=== PATIENT | male | born 1995 | race Caucasian/White ===

== ENCOUNTER 2018-11-15 08:15 | Emergency (ER) | payer MEDICAID, SELFPAY ==
[2018-11-15] VITALS (27 sets, daily range): BP systolic 117–177; BP diastolic 67–99; PULSE 45–63; RESP 18; TEMP 36.6; O2SAT 95–100
--- NOTE | 2018-11-15 08:28 | DI.CT_ITS ---
SYMPTOMS/DIAGNOSIS: ONSET OF HEADACHE DURING SEX, CONCERN FOR VASCULAR ABNORMALITY CT BRAIN: A noncontrast cranial CT was performed. The ventricular system is normal in appearance. There is no evidence of an intracranial mass lesion. There is no evidence of a subdural or epidural hematoma. No focal areas of decreased attenuation are seen. CONCLUSION: Normal noncontrast cranial CT. CTA OF THE HEAD AND NECK: CT ANGIOGRAPHY OF THE NECK: The common carotid arteries are unremarkable without evidence of dissection, occlusion or significant stenosis. The external carotid arteries are unremarkable without evidence of occlusion or significant stenosis. The extracranial internal carotid arteries are unremarkable without evidence of dissection, occlusion or significant stenosis. The vertebral arteries are unremarkable. No evidence of dissection or occlusion is seen. No significant stenosis is present. There is a dominant right vertebral artery. The lung apices are clear. The soft tissues are unremarkable. The bones are intact. IMPRESSION: No acute abnormality. CTA OF THE BRAIN: The intracranial portions of the internal carotid arteries are unremarkable. No evidence of occlusion, aneurysm or significant stenosis is seen. The anterior carotid arteries are unremarkable without evidence of aneurysm, occlusion or significant stenosis. The middle cerebral arteries are unremarkable without evidence of aneurysm, occlusion or significant stenosis. The posterior cerebral arteries are unremarkable without evidence of stenosis, aneurysm or occlusion. The vertebral arteries and basilar artery are unremarkable. No evidence of aneurysm, occlusion or significant stenosis. IMPRESSION: Unremarkable CT angiography of the brain.
--- NOTE | 2018-11-15 08:35 | W.ED.GENAD ---
Discharge Plan Disposition Patient Disposition: HOME Condition: Improving Discharge Details Chief Complaint: Headache Clinical Impression: Headache Primary Care Provider: Venkata Rose ED Provider: Angelito Mcdonald Home Meds and New Rx's Prescriptions: No Action No Known Home Meds RF: 0 Discharge Instructions Instructions: General Headache (ED) Additional Instructions: Return immediately to the emergency department for any new or significant worsening of your symptoms. Otherwise you may use [id number] Excedrin Migraine, stay well-hydrated, and get plenty of rest. If you continue to get headaches it is highly recommended that you follow-up with primary care provider for reassessment and any further testing as needed Referrals: Venkata Rose MD [Primary Care Provider] - (As needed for reassessment) Discharge Data Discharge Date/Time-TO BE ENTERED AT DEPARTURE: 11/15/18 11:16 Medical Decision Making Patient presenting to the emergency for chief complaint of headache. Patient states that this started occurring during sexual activity yesterday. Patient denies this being orgasmic in nature but states that it started out mild and has worsened since yesterday afternoon. Patient states some nausea but denies any vomiting, denies any focal neurological deficits, weakness. Patient does have some photophobia. Patient denies any fever chills cold-like symptoms. Physical exam shows no nuchal rigidity, normal cranial nerve exam, normal neurological exam. Patient does appear uncomfortable but is laughing with friends who are present in the room along with staff members. I do feel this is reassuring but given headache associated with sexual activity I do feel that CT imaging and lab work is needed to rule out aneurysm or structural abnormality. Plan to clear plate patient with Noncon head CT then proceed to head and neck CTA. Pending results patient given IV fluids, Benadryl, Compazine. Review of noncontrast head CT shows no acute abnormality so I feel that is safe for patient to have CTA of head and neck to look for any vascular or structural abnormality. Patient reassessed and does state some improvement of headache after Compazine and Benadryl. Patient given ketorolac to continue to help relieve symptoms. Review of labs is unremarkable nondiagnostic, review of CTA head neck shows no acute findings noted. Patient reassessed and continues to state improvement of symptoms and that he is feeling a lot better. Patient encouraged to return for any new or worsening symptoms otherwise to follow-up with primary care provider for reassessment. Return precautions were discussed with patient. After discussion of diagnosis and plan of care patient has no further needs, questions, or concerns and states clear understanding to return to the emergency department for any worsening symptoms. HPI General Mode of arrival: ambulatory. Date/Time Provider Initiated Documentation: 11/15/18 08:18. Limitations to Documentation: no limitations. Information obtained by: patient and RN notes reviewed. History of Present Illness 23 year old M presents to the emergency department with the chief complaint of headache, described as severe, with intensity rated at 10. Quality is described as sharp, and is localized to the head. Patient neck. Patient started experiencing this day(s) (1) and it has been constant. No relieving factors improve symptom(s), Patient did receive the following treatments prior to arrival, none Related Data Home Medications Medication Instructions Recorded Confirmed Unknown [No Known Home Meds] 11/15/18 11/15/18 Allergies Allergy/AdvReac Type Severity Reaction Status Date / Time No Known Allergies Allergy Unverified 11/15/18 08:26 General Stated Complaint: Headache NERIS: 2 Review of Systems Constitutional Denies chills, Denies fever(s), Denies frequent falls, Reports headache(s) and Denies weakness Eyes Denies blurry vision and Reports photophobia ENT Denies dizziness, Reports headache(s), Denies nasal congestion and Denies sinus pain Cardiovascular Denies chest pain, Denies syncope and Denies dyspnea Respiratory Denies dyspnea Gastrointestinal Denies abdominal pain, Reports nausea and Denies vomiting Neurologic Denies confusion, Denies dizziness, Denies syncope, Denies frequent falls, Reports headache(s), Denies focal weakness, Denies seizure-like activity, Denies sensory deficit and Denies weakness Psychiatric Denies confusion [facility] Medical History Arm fracture, left Asthma Clavicle fracture Social History Smoking and Tabacco status: Current every day Exam Const General: cooperative and well groomed Nutritional Appearance: average body habitus Orientation: alert, awake and oriented x3 Limitations: mental status not altered HENMT Head: normal to inspection, normocephalic and atraumatic Ears: hearing grossly normal bilaterally and TM's normal bilaterally General nose exam: external nose normal and nares normal Face and sinus: normal facial exam and sinuses nontender Mouth: oral mucosae normal and moist mucous membranes Throat: posterior oropharynx normal, tonsils normal and uvula midline Eyes Visual Alvares: normal visual alvares by confrontation Alignment and Position: alignment normal Periorbital: periorbital findings normal Eyelids: eyelids normal Sclera: sclerae normal Cornea: corneas normal Pupils: PERRL EOM: EOM intact bilaterally Neck Neck: normal visual inspection, full ROM, no lymphadenopathy and no meningeal signs Resp Effort & Inspection: normal respiratory effort and able to speak in complete sentences Auscultation: clear to auscultation bilaterally Cardio Rate: regular rate Rhythm: regular rhythm Heart Sounds: S1 normal and S2 normal Neuro General: alert, awake, oriented x3, gait normal, tone normal, moves all extremities, CN's II-XI intact bilaterally and not confused Cranial Nerves: CN's II-XI intact bilaterally Cognition: normal cognition Speech: speech normal Gait: normal gait Motor: muscle tone normal throughout, strength 5/5 throughout, no pronator drift, no movement abnormalities noted and no fasciculations Sensory Exam: no sensory deficits noted Coordination: [id number] test normal, Romberg test normal, Does not sway with eyes open, rapid alternating movement UE normal and rapid alternating movement LE normal Course Vital Signs Temperature 36.6 C 11/15/18 08:21 Pulse 56 L 11/15/18 08:21 Respiratory Rate 18 11/15/18 08:21 Blood Pressure 147/99 H 11/15/18 08:21 Pulse Oximetry 100 11/15/18 08:21 Temperature 36.6 C 11/15/18 08:21 Temperature Source Temporal Artery Scan 11/15/18 08:21 Pulse 56 L 11/15/18 08:21 Respiratory Rate 18 11/15/18 08:21 Respiratory Effort Non-Labored 11/15/18 08:25 Blood Pressure 147/99 H 11/15/18 08:21 Blood Pressure Position Supine 11/15/18 08:21 Pulse Oximetry 100 11/15/18 08:21 Oxygen Delivery Method Room Air 11/15/18 08:21 Oxygen Flow Rate 0 11/15/18 08:21 Pain Level 10 11/15/18 08:27
[2018-11-15] MEDS: Normal Saline 1,000 ML 1000 ML IV (08:40)
--- NOTE | 2018-11-15 08:41 | ED.GENADUL_ITS ---
Discharge Plan Disposition Patient Disposition: HOME Condition: Improving Discharge Details Chief Complaint: Headache Clinical Impression: Headache Primary Care Provider: Venkata Rose ED Provider: Angelito Mcdonald Home Meds and New Rx's Prescriptions: No Action No Known Home Meds RF: 0 Discharge Instructions Instructions: General Headache (ED) Additional Instructions: Return immediately to the emergency department for any new or significant worsening of your symptoms. Otherwise you may use [id number] Excedrin Migraine, stay well-hydrated, and get plenty of rest. If you continue to get headaches it is highly recommended that you follow-up with primary care provider for reassessment and any further testing as needed Referrals: Venkata Rose MD [Primary Care Provider] - (As needed for reassessment) Discharge Data Discharge Date/Time-TO BE ENTERED AT DEPARTURE: 11/15/18 11:16 Medical Decision Making Patient presenting to the emergency for chief complaint of headache. Patient states that this started occurring during sexual activity yesterday. Patient denies this being orgasmic in nature but states that it started out mild and has worsened since yesterday afternoon. Patient states some nausea but denies any vomiting, denies any focal neurological deficits, weakness. Patient does have some photophobia. Patient denies any fever chills cold-like symptoms. Physical exam shows no nuchal rigidity, normal cranial nerve exam, normal neurological exam. Patient does appear uncomfortable but is laughing with friends who are present in the room along with staff members. I do feel this is reassuring but given headache associated with sexual activity I do feel that CT imaging and lab work is needed to rule out aneurysm or structural abnormality. Plan to clear plate patient with Noncon head CT then proceed to head and neck CTA. Pending results patient given IV fluids, Benadryl, Compazine. Review of noncontrast head CT shows no acute abnormality so I feel that is safe for patient to have CTA of head and neck to look for any vascular or structural abnormality. Patient reassessed and does state some improvement of headache after Compazine and Benadryl. Patient given ketorolac to continue to help relieve symptoms. Review of labs is unremarkable nondiagnostic, review of CTA head neck shows no acute findings noted. Patient reassessed and continues to state improvement of symptoms and that he is feeling a lot better. Patient encouraged to return for any new or worsening symptoms otherwise to follow-up with primary care provider for reassessment. Return precautions were discussed with patient. After discussion of diagnosis and plan of care patient has no further needs, questions, or concerns and states clear understanding to return to the emergency department for any worsening symptoms. HPI General Mode of arrival: ambulatory . Date/Time Provider Initiated Documentation: 11/15/18 08:18 . Limitations to Documentation: no limitations . Information obtained by: patient and RN notes reviewed . History of Present Illness 23 year old M presents to the emergency department with the chief complaint of headache, described as severe, with intensity rated at 10. Quality is described as sharp, and is localized to the head. Patient neck. Patient started experiencing this day(s) (1) and it has been constant. No relieving factors improve symptom(s), Patient did receive the following treatments prior to arrival, none Related Data Home Medications Medication Instructions Recorded Confirmed Unknown [No Known Home Meds] 11/15/18 11/15/18 Allergies Allergy/AdvReac Type Severity Reaction Status Date / Time No Known Allergies Allergy Unverified 11/15/18 08:26 General Stated Complaint: Headache NERIS: 2 Review of Systems Constitutional Denies chills, Denies fever(s), Denies frequent falls, Reports headache(s) and Denies weakness Eyes Denies blurry vision and Reports photophobia ENT Denies dizziness, Reports headache(s), Denies nasal congestion and Denies sinus pain Cardiovascular Denies chest pain, Denies syncope and Denies dyspnea Respiratory Denies dyspnea Gastrointestinal Denies abdominal pain, Reports nausea and Denies vomiting Neurologic Denies confusion, Denies dizziness, Denies syncope, Denies frequent falls, Reports headache(s), Denies focal weakness, Denies seizure-like activity, Denies sensory deficit and Denies weakness Psychiatric Denies confusion [facility] Medical History Arm fracture, left Asthma Clavicle fracture Social History Smoking and Tabacco status: Current every day Exam Const General: cooperative and well groomed Nutritional Appearance: average body habitus Orientation: alert, awake and oriented x3 Limitations: mental status not altered HENMT Head: normal to inspection, normocephalic and atraumatic Ears: hearing grossly normal bilaterally and TM's normal bilaterally General nose exam: external nose normal and nares normal Face and sinus: normal facial exam and sinuses nontender Mouth: oral mucosae normal and moist mucous membranes Throat: posterior oropharynx normal, tonsils normal and uvula midline Eyes Visual Alvares: normal visual alvares by confrontation Alignment and Position: alignment normal Periorbital: periorbital findings normal Eyelids: eyelids normal Sclera: sclerae normal Cornea: corneas normal Pupils: PERRL EOM: EOM intact bilaterally Neck Neck: normal visual inspection, full ROM, no lymphadenopathy and no meningeal signs Resp Effort & Inspection: normal respiratory effort and able to speak in complete sentences Auscultation: clear to auscultation bilaterally Cardio Rate: regular rate Rhythm: regular rhythm Heart Sounds: S1 normal and S2 normal Neuro General: alert, awake, oriented x3, gait normal, tone normal, moves all extremities, CN's II-XI intact bilaterally and not confused Cranial Nerves: CN's II-XI intact bilaterally Cognition: normal cognition Speech: speech normal Gait: normal gait Motor: muscle tone normal throughout, strength 5/5 throughout, no pronator drift, no movement abnormalities noted and no fasciculations Sensory Exam: no sensory deficits noted Coordination: [id number] test normal, Romberg test normal, Does not sway with eyes open, rapid alternating movement UE normal and rapid alternating movement LE normal Course Vital Signs Temperature 36.6 C 11/15/18 08:21 Pulse 56 L 11/15/18 08:21 Respiratory Rate 18 11/15/18 08:21 Blood Pressure 147/99 H 11/15/18 08:21 Pulse Oximetry 100 11/15/18 08:21 Temperature 36.6 C 11/15/18 08:21 Temperature Source Temporal Artery Scan 11/15/18 08:21 Pulse 56 L 11/15/18 08:21 Respiratory Rate 18 11/15/18 08:21 Respiratory Effort Non-Labored 11/15/18 08:25 Blood Pressure 147/99 H 11/15/18 08:21 Blood Pressure Position Supine 11/15/18 08:21 Pulse Oximetry 100 11/15/18 08:21 Oxygen Delivery Method Room Air 11/15/18 08:21 Oxygen Flow Rate 0 11/15/18 08:21 Pain Level 10 11/15/18 08:27
[2018-11-15 08:51] LABS: Abs Immature Grans 0.01 k/cumm (0.0-0.09); Absolute Basophil Count 0.02 k/cumm (0.0-0.2); Absolute Eosinophil Count 0.08 k/cumm (0.0-0.7); Absolute Lymphocyte Count 1.76 k/cumm (1.2-3.4); Absolute Monocyte Count 0.36 k/cumm (0.11-0.7); Absolute Neutrophil Count 3.97 k/cumm (1.2-6.7); Basophils % 0.3; Eosinophils % 1.3; HGB 16.1 g/dL (13.5-17.5); Immature Grans % 0.2; Lymphocytes % 28.4; Mean Corp. HGB Concentration 33.5 g/dL (32.0-36.0); Mean Corpuscular Hemoglobin 30.2 pg (27.0-33.0); Mean Corpuscular Volume 90.1 fL (80-95); Mean Platelet Volume 9.7 fL (8.0-11.0); Monocytes % 5.8; Platelet Count 280 x1000/uL (130-400); RBC 5.33 m/cumm (4.50-6.00); RBC Distribution Width 12.5 % (11.8-14.1)
[2018-11-15] MEDS: diphenhydrAMINE 50 MG/ML VIAL 25 MG IVP (08:51)
[2018-11-15] MEDS: Prochlorperazine 10 MG/2 ML VIAL IVP (08:52)
[2018-11-15 09:15] LABS: ALT 28 U/L (12-78); AST 23 U/L (15-37); Albumin 4.8 g/dL (3.4-5.0); Alkaline Phosphatase 43 U/L (46-116); Anion Gap 11.1 mmol/L (3-11); BUN 11 mg/dL (7-18); Bilirubin, Total 0.5 mg/dL (0.2-1.0); CO2 27.9 mmol/L (21.0-32.0); Calcium 9.9 mg/dL (8.5-10.1); Chloride 101 mmol/L (98-107); Glucose 124 mg/dL (70-100); Magnesium 1.8 mg/dL (1.8-2.4); Potassium 3.9 mmol/L (3.5-5.1); Sodium 140 mmol/L (136-145); TSH 0.71 uIU/mL (0.358-3.74); Total Protein 8.7 g/dL (6.4-8.2)
[2018-11-15 09:43] LABS: Bilirubin Negative (Negative); Blood Negative (Negative); Clarity Clear; Glucose Negative (Negative); Ketones Negative (Negative); Leukocyte Esterase Negative (Negative); Nitrite Negative (Negative); Specific Gravity <= 1.005 (1.005-1.025); Urobilinogen 0.2 EU/dL (Up TO 0.2)
[2018-11-15] MEDS: Ketorolac 15 MG/ML VIAL IVP (09:43)
--- NOTE | 2018-11-15 09:47 | DI.VRAD_ITS ---
EXAM: CT Head Without Contrast EXAM DATE/TIME: 11/15/2018 8:34 AM CLINICAL HISTORY: 23 years old, male; Signs and symptoms; Other: Headache TECHNIQUE: Axial computed tomography images of the head/brain without contrast. All CT scans at this facility use at least one of these dose optimization techniques: automated exposure control; mA and/or kV adjustment per patient size (includes targeted exams where dose is matched to clinical indication); or iterative reconstruction. Coronal and sagittal reformatted images were created and reviewed. COMPARISON: No relevant prior studies available. FINDINGS: Brain: Normal. No hemorrhage. No significant white matter disease. No edema. Ventricles: Normal. No ventriculomegaly. Bones/joints: Unremarkable. No acute fracture. Sinuses: Visualized sinuses are unremarkable. No acute sinusitis. Mastoid air cells: Visualized mastoid air cells are unremarkable. No mastoid effusion. Soft tissues: Unremarkable. IMPRESSION: No acute intracranial abnormality. Dictated and Authenticated by: Holly Li MD. Ordering:HETAL Eaton MD
[2018-11-15] MEDS: Omnipaque 350 MG/ML 100 ML BTL IJ (10:32)
[2018-11-15] MEDS: Normal Saline Flush 10 ML SYR IVP (10:33)
--- NOTE | 2018-11-15 10:37 | DI.VRAD_ITS ---
EXAM: CT Angiography Head With Contrast EXAM DATE/TIME: 11/15/2018 9:38 AM CLINICAL HISTORY: 23 years old, male; Signs and symptoms; Other: Headache; Additional info: Sexual headache, concern for vascular abnormality TECHNIQUE: Axial computed tomographic angiography images of the head with intravenous contrast using CT angiography protocol. All CT scans at this facility use at least one of these dose optimization techniques: automated exposure control; mA and/or kV adjustment per patient size (includes targeted exams where dose is matched to clinical indication); or iterative reconstruction. MIP reconstructed images were created and reviewed. CONTRAST: 85 ml of Omnipaque 350 administered intravenously. COMPARISON: CT Private^HEAD ROUTINE (Adult) 11/15/2018 9:27 AM FINDINGS: Right internal carotid artery: Unremarkable. Intracranial segment is patent with no significant stenosis. No aneurysm. Right anterior cerebral artery: Unremarkable. No occlusion or significant stenosis. No aneurysm. Right middle cerebral artery: Unremarkable. No occlusion or significant stenosis. No aneurysm. Right posterior cerebral artery: Unremarkable. No occlusion or significant stenosis. No aneurysm. Right vertebral artery: Unremarkable. No occlusion or significant stenosis. No aneurysm. Left internal carotid artery: Unremarkable. Intracranial segment is patent with no significant stenosis. No aneurysm. Left anterior cerebral artery: Unremarkable. No occlusion or significant stenosis. No aneurysm. Left middle cerebral artery: Unremarkable. No occlusion or significant stenosis. No aneurysm. Left posterior cerebral artery: Unremarkable. No occlusion or significant stenosis. No aneurysm. Left vertebral artery: Unremarkable. No occlusion or significant stenosis. No aneurysm. Basilar artery: Unremarkable. No occlusion or significant stenosis. No aneurysm. IMPRESSION: No acute findings. EXAM: CT Angiography Neck With Contrast EXAM DATE/TIME: 11/15/2018 9:38 AM CLINICAL HISTORY: 23 years old, male; Signs and symptoms; Other: Headache; Additional info: Sexual headache, concern for vascular abnormality TECHNIQUE: Axial computed tomographic angiography images of the neck with intravenous contrast using CT angiography protocol. All CT scans at this facility use at least one of these dose optimization techniques: automated exposure control; mA and/or kV adjustment per patient size (includes targeted exams where dose is matched to clinical indication); or iterative reconstruction. MIP reconstructed images were created and reviewed. CONTRAST: 85 ml of Omnipaque 350 administered intravenously. COMPARISON: CT Private^HEAD ROUTINE (Adult) 11/15/2018 9:27 AM FINDINGS: VASCULATURE: Right common carotid artery: Normal. No significant stenosis. No dissection or occlusion. Right internal carotid artery: Normal. Extracranial segment is patent with no significant stenosis. No dissection or occlusion. Right external carotid artery: Normal. No occlusion or significant stenosis. Right vertebral artery: Normal. No significant stenosis. No dissection or occlusion. Left common carotid artery: Normal. No significant stenosis. No dissection or occlusion. Left internal carotid artery: Normal. Extracranial segment is patent with no significant stenosis. No dissection or occlusion. Left external carotid artery: Normal. No occlusion or significant stenosis. Left vertebral artery: Normal. No significant stenosis. No dissection or occlusion. NECK: Bones/joints: No acute fracture. Soft tissues: Normal. No significant soft tissue swelling. IMPRESSION: No acute findings. COMMENT: Reference per NASCET criteria for degree of stenosis: Mild: <50% stenosis. Moderate: 50-69% stenosis. Severe: 70-94% stenosis. Near occlusion: 95-99% stenosis. Dictated and Authenticated by: Holly Li MD. Ordering:HETAL Eaton MD
== END 2018-11-15 11:16 | disposition home or self-care (01) ==
PROVIDERS: Emergency Provider Nurse Practitioner Family; PCP Pediatrics
DX: R51 Headache (principal); R11.0 Nausea
CPT/HCPCS: 36415; 70496; 70498; 80053; 96361; 96374; 96375; 99284; 99285; 70450; 81003; 83735; 84443; 85025; J0780; J1200; J1885; J2930; J3490

== ENCOUNTER 2018-11-15 22:05 | Emergency (ER) | payer MEDICAID, SELFPAY ==
[2018-11-15 22:17] VITALS: BP 157/95; PULSE 72; RESP 18; O2SAT 100
[2018-11-15] MEDS: methylPREDNISolone SUCC 125 MG VIAL IVP (22:34)
[2018-11-15] MEDS: Ketorolac 30 MG/ML VIAL 15 MG IVP (22:35)
[2018-11-15] MEDS: Normal Saline 1,000 ML 1000 ML IV (22:37)
[2018-11-15] MEDS: Prochlorperazine 10 MG/2 ML VIAL IVP (22:37)
[2018-11-15] MEDS: Acetaminophen 500 MG TAB 1000 MG PO (22:44)
[2018-11-15] MEDS: diphenhydrAMINE 25 MG CAP PO (22:45)
--- NOTE | 2018-11-15 22:46 | W.ED.GENAD ---
Discharge Plan Disposition Patient Disposition: HOME Condition: Good Discharge Details Chief Complaint: Headache Clinical Impression: Headache, migraine Reason For Visit: head ache Primary Care Provider: Venkata Rose ED Provider: Evens Nina Home Meds and New Rx's Prescriptions: No Action No Known Home Meds RF: 0 Discharge Instructions Instructions: Migraine Headache (ED) Additional Instructions: Please stay well-hydrated, avoid deli meats or preserved meats. Please drink 10-12 cups of water per day. If you do have a recurrence of your headache please take 1000 mg of Tylenol, 25 mg of Benadryl, and 800 mg of ibuprofen. If your headache persists with this please return immediately for reassessment. We will set up for a referral for you for a new primary care provider. If you notice any worsening of your symptoms, or any new symptoms such as vomiting, diarrhea, fever, chills, shortness of breath, chest pain, numbness, weakness, or fainting , please return immediately to the emergency department for reevaluation. Please follow up with your primary care provider as soon as possible for reassessment and reevaluation. As always, it was a pleasure participating in your medical care today. Medical Decision Making This is a very pleasant 23-year-old male who presents for evaluation of headache. He had a headache earlier today that was postcoital. It was gradual in onset, he had no associated neck stiffness, fever, or chills. CT angios and Noncon CT scan were performed of the head and were both negative. Patient's symptoms completely resolved, and he was discharged home. Per the records it does not appear that he was given steroids on his previous visit. He presents now for return of his headache for the last 30 minutes. It is similar in nature to his previous headache. Patient demonstrates no nuchal rigidity, and a negative Kernig's and Brudzinski's. No clinical evidence of meningitis, or ruptured intracranial aneurysm. He has a normal neurologic exam. He has a strong family history of migraines. No clinical symptoms suggestive of a cluster headache. We will give the migraine cocktail except add steroids. We will rehydrate with fluids and reassess. I did discuss a lumbar puncture with the patient and he would like to hold off on any puncture at this time. I did discuss the risks and benefits of this and the patient understands. Patient will be given Benadryl, Solu-Medrol, Toradol, and Compazine, and IV fluids. 11:24 PM The patient has complete resolution of his headache. He is feeling much better at this time. Signs and symptoms remain clinically inconsistent with meningitis, intracranial aneurysm, or bleed. No signs of infection, vital signs are stable. I feel the symptoms are most likely secondary to a migraine, and less likely cluster headache. With steroids I hope that this will be the final resolution for his headache. I did discuss red flags for which to return the patient understands. I have extensively reviewed the treatment plan and discharge instructions with the patient and their family. I have addressed all patient concerns at this time. The patient and family was made aware of what symptoms to monitor for that would warrant a return to the emergency department. Discussed the plan with the patient and family, they demonstrate verbal understanding and agreement with our assessment and plan at this time. HPI General Date/Time Provider Initiated Documentation: 11/15/18 22:09. HPI Narrative: This is a pleasant 23-year-old male with no significant past medical history who presents today for evaluation of headache. He was here earlier today for evaluation of headache. When it occurred before it occurred after colitis. It was gradual in onset, it was not the worst headache of his life. However it gradually worsened. He came to the ER for further evaluation. He had a very thorough and complete workup by Milton Mcdonald within negative CT angios head, negative CT Noncon head, and otherwise benign workup. Patient had complete resolution of his symptoms after he was given some NSAIDs, and Compazine. He was eventually discharged home. Unfortunately this evening while the patient was watching [employer] his headache came back roughly 30 minutes ago. It again came on gradually but now he describes it as very severe. It comes from the back of his head all the way to the front. He denies any pain or ice pick like sensation behind his eyes. It is worsened with bright lights, loud noise. He denies any neck stiffness, fever, chills. The patient denies any headache red flags of worst headache of life, thunderclap headache, neck pain, fever, chills, concerning family history of polycystic kidney disease, Marfan syndrome, Jhony-Danlos syndrome, abdominal aortic aneurysm, aortic dissection, or intracranial aneurysm. Patient does state that his mother has a history of migraines similar to this. Patient denies any cocaine use or any other modifying factors. He denies any IV or illicit drug use. Related Data Home Medications Medication Instructions Recorded Confirmed Unknown [No Known Home Meds] 11/15/18 11/15/18 Allergies Allergy/AdvReac Type Severity Reaction Status Date / Time No Known Allergies Allergy Unverified 11/15/18 08:26 General Stated Complaint: Headache NERIS: 2 Review of Systems Review of Systems All systems reviewed & are unremarkable except as noted in HPI and below [facility] Social History Smoking and Tabacco status: Current every day Exam Narrative Exam Narrative: 1.Const: Well-nourished, Well-developed, appearing stated age 2.Eyes: PERRL, no conjunctival injection, and symmetrical lids. 3.ENT: Atraumatic external nose and ears. Moist MM. Neck: Symmetric, trachea midline, No thyromegaly. Patient demonstrates good movement of cervical neck. There is no nuchal rigidity, no nuchal tenderness. Patient is able to flex the neck without any difficulty or significant pain. Negative Kernig's and Brudzinski sign. 4.CVS: +S1/S2, No murmurs or gallops. Peripheral pulses 2+ and equal in all extremities. Brisk capillary refill in all extremities. 5.RESP: Unlabored respiratory effort. Clear to auscultation bilaterally. No wheezes rales or rhonchi 6.GI: Soft, Nontender/Nondistended, No hepatosplenomegaly. No guarding or rebound. 7.MSK: Normocephalic/Atraumatic, Extremities w/o deformity or ttp No cyanosis or clubbing, Normal movement of all extremities 8.Skin: Warm, Dry. No rashes or lesions. 9.Neuro: counter tender II-XII grossly intact. Sensation grossly intact, no focal neurologic deficits. All 6 cardinal planes of vision are fully intact. No evidence of rotatory or vertical nystagmus. The patient demonstrated a normal eujtmq-wojr-mseats, good dexterity. There was no evidence of dysdiadochokinesia. Patient was able to ambulate without difficulty. There was no wide-based gait. Romberg, and tnft-hm-[id number] are both normal on testing. Sensation was intact bilaterally as well as muscle strength bilaterally for all extremities. Patient was able to verbalize butter cup with no slurring, or miss pronunciation. 10.Psych: (AAO) x3. Appropriate mood and affect Course Vital Signs Pulse 72 11/15/18 22:17 Respiratory Rate 18 11/15/18 22:17 Blood Pressure 157/95 H 11/15/18 22:17 Pulse Oximetry 100 11/15/18 22:17 Temperature Source Tympanic 11/15/18 22:17 Pulse 72 11/15/18 22:17 Respiratory Rate 18 11/15/18 22:17 Blood Pressure 157/95 H 11/15/18 22:17 Blood Pressure Position Sitting 11/15/18 22:17 Pulse Oximetry 100 11/15/18 22:17 Oxygen Delivery Method Room Air 11/15/18 22:17 Oxygen Flow Rate 0 11/15/18 22:17 Pain Level 10 11/15/18 22:44
--- NOTE | 2018-11-15 22:50 | ED.GENADUL_ITS ---
Discharge Plan Disposition Patient Disposition: HOME Condition: Good Discharge Details Chief Complaint: Headache Clinical Impression: Headache, migraine Reason For Visit: head ache Primary Care Provider: Venkata Rose ED Provider: Evens Nina Home Meds and New Rx's Prescriptions: No Action No Known Home Meds RF: 0 Discharge Instructions Instructions: Migraine Headache (ED) Additional Instructions: Please stay well-hydrated, avoid deli meats or preserved meats. Please drink 10-12 cups of water per day. If you do have a recurrence of your headache please take 1000 mg of Tylenol, 25 mg of Benadryl, and 800 mg of ibuprofen. If your headache persists with this please return immediately for reassessment. We will set up for a referral for you for a new primary care provider. If you notice any worsening of your symptoms, or any new symptoms such as vomiting, diarrhea, fever, chills, shortness of breath, chest pain, numbness, weakness, or fainting , please return immediately to the emergency department for reevaluation. Please follow up with your primary care provider as soon as possible for reassessment and reevaluation. As always, it was a pleasure participating in your medical care today. Medical Decision Making This is a very pleasant 23-year-old male who presents for evaluation of headache. He had a headache earlier today that was postcoital. It was gradual in onset, he had no associated neck stiffness, fever, or chills. CT angios and Noncon CT scan were performed of the head and were both negative. Patient's symptoms completely resolved, and he was discharged home. Per the records it does not appear that he was given steroids on his previous visit. He presents now for return of his headache for the last 30 minutes. It is similar in nature to his previous headache. Patient demonstrates no nuchal rigidity, and a negative Kernig's and Brudzinski's. No clinical evidence of meningitis, or ruptured intracranial aneurysm. He has a normal neurologic exam. He has a strong family history of migraines. No clinical symptoms suggestive of a cluster headache. We will give the migraine cocktail except add steroids. We will rehydrate with fluids and reassess. I did discuss a lumbar puncture with the patient and he would like to hold off on any puncture at this time. I did discuss the risks and benefits of this and the patient understands. Patient will be given Benadryl, Solu-Medrol, Toradol, and Compazine, and IV fluids. 11:24 PM The patient has complete resolution of his headache. He is feeling much better at this time. Signs and symptoms remain clinically inconsistent with meningitis, intracranial aneurysm, or bleed. No signs of infection, vital signs are stable. I feel the symptoms are most likely secondary to a migraine, and less likely cluster headache. With steroids I hope that this will be the final resolution for his headache. I did discuss red flags for which to return the patient understands. I have extensively reviewed the treatment plan and discharge instructions with the patient and their family. I have addressed all patient concerns at this time. The patient and family was made aware of what symptoms to monitor for that would warrant a return to the emergency department. Discussed the plan with the patient and family, they demonstrate verbal understanding and agreement with our assessment and plan at this time. HPI General Date/Time Provider Initiated Documentation: 11/15/18 22:09 . HPI Narrative: This is a pleasant 23-year-old male with no significant past medical history who presents today for evaluation of headache. He was here earlier today for evaluation of headache. When it occurred before it occurred after colitis. It was gradual in onset, it was not the worst headache of his life. However it gradually worsened. He came to the ER for further evaluation. He had a very thorough and complete workup by Milton Mcdonald within negative CT angios head, negative CT Noncon head, and otherwise benign workup. Patient had complete resolution of his symptoms after he was given some NSAIDs, and Compazine. He was eventually discharged home. Unfortunately this evening while the patient was watching [employer] his headache came back roughly 30 minutes ago. It again came on gradually but now he describes it as very severe. It comes from the back of his head all the way to the front. He denies any pain or ice pick like sensation behind his eyes. It is worsened with bright lights, loud noise. He denies any neck stiffness, fever, chills. The patient denies any headache red flags of worst headache of life, thunderclap headache, neck pain, fever, chills, concerning family history of polycystic kidney disease, Marfan syndrome, Jhony-Danlos syndrome, abdominal aortic aneurysm, aortic dissection, or intracranial aneurysm. Patient does state that his mother has a history of migraines similar to this. Patient denies any cocaine use or any other modifying factors. He denies any IV or illicit drug use. Related Data Home Medications Medication Instructions Recorded Confirmed Unknown [No Known Home Meds] 11/15/18 11/15/18 Allergies Allergy/AdvReac Type Severity Reaction Status Date / Time No Known Allergies Allergy Unverified 11/15/18 08:26 General Stated Complaint: Headache NERIS: 2 Review of Systems Review of Systems All systems reviewed & are unremarkable except as noted in HPI and below [facility] Social History Smoking and Tabacco status: Current every day Exam Narrative Exam Narrative: 1.Const: Well-nourished, Well-developed, appearing stated age 2.Eyes: PERRL, no conjunctival injection, and symmetrical lids. 3.ENT: Atraumatic external nose and ears. Moist MM. Neck: Symmetric, trachea midline, No thyromegaly. Patient demonstrates good movement of cervical neck. There is no nuchal rigidity, no nuchal tenderness. Patient is able to flex the neck without any difficulty or significant pain. Negative Kernig's and Brudzinski sign. 4.CVS: +S1/S2, No murmurs or gallops. Peripheral pulses 2+ and equal in all extremities. Brisk capillary refill in all extremities. 5.RESP: Unlabored respiratory effort. Clear to auscultation bilaterally. No wheezes rales or rhonchi 6.GI: Soft, Nontender/Nondistended, No hepatosplenomegaly. No guarding or rebound. 7.MSK: Normocephalic/Atraumatic, Extremities w/o deformity or ttp No cyanosis or clubbing, Normal movement of all extremities 8.Skin: Warm, Dry. No rashes or lesions. 9.Neuro: seed analyst II-XII grossly intact. Sensation grossly intact, no focal neurologic deficits. All 6 cardinal planes of vision are fully intact. No evidence of rotatory or vertical nystagmus. The patient demonstrated a normal iyiwtw-imil-naqidp, good dexterity. There was no evidence of dysdiadochokinesia. Patient was able to ambulate without difficulty. There was no wide-based gait. Romberg, and spmv-cl-vkko are both normal on testing. Sensation was intact bilaterally as well as muscle strength bilaterally for all extremities. Patient was able to verbalize butter cup with no slurring, or miss pronunciation. 10.Psych: (AAO) x3. Appropriate mood and affect Course Vital Signs Pulse 72 11/15/18 22:17 Respiratory Rate 18 11/15/18 22:17 Blood Pressure 157/95 H 11/15/18 22:17 Pulse Oximetry 100 11/15/18 22:17 Temperature Source Tympanic 11/15/18 22:17 Pulse 72 11/15/18 22:17 Respiratory Rate 18 11/15/18 22:17 Blood Pressure 157/95 H 11/15/18 22:17 Blood Pressure Position Sitting 11/15/18 22:17 Pulse Oximetry 100 11/15/18 22:17 Oxygen Delivery Method Room Air 11/15/18 22:17 Oxygen Flow Rate 0 11/15/18 22:17 Pain Level 10 11/15/18 22:44
--- NOTE | 2018-11-16 09:00 | PDOC.ERCMPRO ---
Care Management Progress Note 11/16-Dr. Nina requested assistance with a PCP (used to see Dr. Damon Weaver asset protection manager) f/u in two weeks for reoccurring headaches. Referral faxed to [facility] this am.
--- NOTE | 2018-11-16 09:02 | CMPROGNOTE_ITS ---
Care Management Progress Note 11/16-Dr. Nina requested assistance with a PCP (used to see Dr. Damon Weaver refrigeration brazer/solderer) f/u in two weeks for reoccurring headaches. Referral faxed to [facility] this am.
== END 2018-11-15 23:32 | disposition home or self-care (01) ==
LOC: ER 23:34
PROVIDERS: Emergency Provider Student in an Organized Health Care Education/Training Program; PCP Pediatrics
DX: G43.909 Migraine, unspecified, not intractable, without status migrainosus (principal)
CPT/HCPCS: 96361; 96374; 96375; 99284; J0780; J1885; J2930

== ENCOUNTER 2019-12-13 20:00 | Emergency (ER) | payer MEDICAID, SELFPAY ==
[2019-12-13 20:06] VITALS: BP 129/77; PULSE 89; RESP 18; TEMP 36.6
--- NOTE | 2019-12-13 20:43 | ED.GENADUL_ITS ---
Discharge Plan Disposition Patient Disposition: HOME Condition: Stable Discharge Details Chief Complaint: PsychEval Clinical Impression: Depression, Homelessness, Heroin use Primary Care Provider: Venkata Rose ED Provider: Shannan Covington Home Meds and New Rx's Prescriptions: No Action No Known Home Meds RF: 0 Discharge Instructions Instructions: Depression (ED) Additional Instructions: Call [facility] tomorrow morning to see if a bed is available for rehabilitation stay. Follow your safety plan as discussed with behavioral health. You can follow-up with [facility] for further evaluation of your depression. Return to the emergency department if you develop any worsening or new concerning symptoms. Discharge Data Discharge Physician: Shannan Covington Medical Decision Making 2029 -- 24-year-old male with a history of heroin use who is currently homeless for the past week presents with thoughts of suicide. He currently does not have a plan. No previous history of suicide attempt. It appears at [facility] sent him here for evaluation when he called there to go for rehab today. He is hemodynamically stable. No acute findings on exam. He is alert and oriented. Do not see an indication for screening labs. Will call mental health for further evaluation. [id number] --mental health evaluated patient at bedside. Patient denies any suicidal ideation at this time and states he did not have any plan earlier today. He states he feels down due to his homelessness and drug use and would like to be placed at [facility]. Mental health discussed with [facility] and patient can call there tomorrow morning to see if bed available. While patient was in the ED, he was in the bathroom for approximately 10 to 15 minutes and there was concern that patient may have smoked heroin as there was a smell of butane in the bathroom. Patient adamantly denied this and states you people accuse me of smoking dope and I wasn't, I was only taking a shit!. Patient appears awake and alert. Patient and his girlfriend discussed with patient's father and patient will be staying at his father's house tonight. Hem[facility] with mental health discussed with patient's father and a safety plan was created. Patient later admitted to Hemal[facility] that he only stated he was suicidal because he wanted somewhere to stay tonight. Patient was advised to call [facility] tomorrow morning. He was advised to follow-up with [facility]. He was advised to return here with any concerns. Medical Records Medical records reviewed: Yes I reviewed the patient's medical records. HPI General Mode of arrival: ambulatory . Date/Time Provider Initiated Documentation: 12/13/19 20:11 . Limitations to Documentation: no limitations . Information obtained by: patient . HPI Narrative: Patient is a 24-year-old male who presents with thoughts of suicide today due to his continued drug use and homelessness. Patient states he had been living with his girlfriends parents until 1 week ago but cannot return there. He has a mother in [place] but states he cannot live there. He states [facility] and was clean for 1 month but then started using again. Patient states he last smoked heroin today. He denies any acute medical complaints. He states he called [facility] to go back to rehab and they advised him to come to the emergency department. Patient does not have a plan. He denies any homicidal ideation. He admits to previous thoughts of suicide with a plan to hang himself a few years ago but has never had a suicide attempt. Related Data Home Medications Medication Instructions Recorded Confirmed Unknown [No Known Home Meds] 11/15/18 11/15/18 Allergies Allergy/AdvReac Type Severity Reaction Status Date / Time No Known Allergies Allergy Unverified 11/15/18 08:26 General Stated Complaint: PsychEval NERIS: 2 Review of Systems All systems reviewed & are unremarkable except as noted in HPI and below Constitutional Constitutional: Reports as per HPI, Denies chills and Denies fever(s) Eyes Eyes: Denies blurry vision ENT Ears, Nose, Mouth, and Throat: Denies dizziness, Denies sore throat and Denies throat swelling Cardiovascular Cardiovascular: Denies chest pain and Denies dyspnea Respiratory Respiratory: Denies cough and Denies dyspnea Gastrointestinal Gastrointestinal: Denies abdominal pain, Denies diarrhea and Denies vomiting Genitourinary Genitourinary: Denies hematuria and Denies dysuria Musculoskeletal Musculoskeletal: Denies back pain and Denies numbness Integumentary/Breasts Skin/Breast: Denies lesions and Denies rash Neurologic Neurologic: Denies dizziness, Denies focal weakness and Denies numbness Psychiatric Psychiatric: Reports suicidal ideation Allergic/Immunologic Allergic/Immunologic: Denies throat swelling [facility] Social History Smoking/Tobacco Use Status: Current every day Tobacco Type: cigarettes Alcohol Intake: never Drug use: Daily Substance use type: marijuana, crack/cocaine, heroin and opiates Do you feel safe in your relationship?: Yes Exam Const General: cooperative, healthy appearing, no acute distress and disheveled Orientation: alert, awake and oriented x3 HENMT Head: normal to inspection Face and sinus: normal facial exam Eyes General: appearance normal, both eyes and all related structures Pupils: PERRL EOM: EOM intact bilaterally Neck Neck: normal visual inspection and No submandibular swelling Lymphatic: no lymphadenopathy noted Chest Chest: normal inspection of the chest and no tenderness Resp Effort & Inspection: normal respiratory effort and able to speak in complete sentences Auscultation: clear to auscultation bilaterally Cardio Rate: regular rate Rhythm: regular rhythm GI Inspection: normal to inspection Palpation: soft, not firm, not rigid and nontender Auscultation: normal bowel sounds Skin General skin exam: no rashes or lesions noted Neuro General: alert, awake and oriented x3 Cognition: normal cognition Speech: speech normal Motor: muscle tone normal throughout Sensory Exam: no sensory deficits noted Extrem General: normal to inspection, full ROM, normal capillary refill, no calf tend erness bilaterally and no edema Psych Appearance: grossly normal Mental Status: mental status grossly normal Speech and Movement: speech and movement normal Affect: normal affect Course Vital Signs Vital signs: Vital Signs Temperature 97.9 F 12/13/19 20:06 Pulse 89 12/13/19 20:06 Respiratory Rate 18 12/13/19 20:06 Blood Pressure 129/77 12/13/19 20:06 Temperature 97.9 F 12/13/19 20:06 Temperature Source Oral 12/13/19 20:06 Pulse 89 12/13/19 20:06 Respiratory Rate 18 12/13/19 20:06 Respiratory Effort 12/13/19 20:10 Blood Pressure 129/77 12/13/19 20:06 Oxygen Delivery Method Room Air 12/13/19 20:06 Oxygen Flow Rate 0 12/13/19 20:06 Pain Level 0 12/13/19 20:06
--- NOTE | 2019-12-13 22:50 | NUR.NOTE ---
Nursing Note: Pt in bathroom fro 10+ minutes. When asked pt stated i had to take a shit. Upon exiting [facility] butane odor was present. Pt denies use. Pts belongings had been removed. however girlfriend did have her purse. Pt consented to be searched. No contraband found. Pt became irritated with staffs suspicion and requested to leave. MD and mental stacie advised.
--- NOTE | 2019-12-13 23:08 | PDOC.MHPN2 ---
Date of service: 12/13/19 Time of Service: 23:21 Mental Health Progress Note Progress Note Progress Note: Presenting Issue: Pt presented to ED per recommendation of [facility]. Pt advised he was gonna end it earlier today, and wanted to get into [facility]. Pt advised he had to say some crazy shit to get a ride from his girlfriend's parents, further advising that he stated he wanted to kill himself because he was afraid he wasn't going to have a place to go tonight, as they recently kicked him out because he smokes heroin. Precipitating Factors Pt advised that he was recently kicked out of his girlfriend's parents, and has been homeless for a week. Pt advised that he wants to be inpatient at [facility]. Pt has no SI or HI currently, and advised that he just said that to get a ride and get into a program for heroin abuse. When asked if he feels hopeless, pt advised, nabil sorta. Disposition * Behavior: While I was asking him questions, pt rolled his eyes and laughed at many of my questions. Pt was barely cooperative while safety planning, and advised, I didn't really want to hurt myself, I just needed a ride. *Eye Contact: Very little eye contact *Mood: Pt was annoyed and agitated *Affect: Pt was inappropriate and laughed at questions pertaining to safety planning *Appetite: pt advised he hasn't eaten all day ad just wanted to go to his dad's house to eat and pass the fuck out *Sleep(troubel falling/staying asleep): no issues Plan(please elaborate and include that physician is consulted with plan and/or placement): Pt will go to his father's house in [place] with his girlfriend, Kathy. Pt advised he will call [facility] tomorrow, and let [facility] know if they need anything from our agency. Clinician's Name , Title, and Signature [employer] [place] [employer] Make sure that you are photocopying and submitting this to [facility] records Dept. to be scanned into chart.
== END 2019-12-13 23:08 | disposition home or self-care (01) ==
PROVIDERS: Emergency Provider Physician Assistant; PCP Pediatrics
DX: F11.10 Opioid abuse, uncomplicated (principal); F32.9 Major depressive disorder, single episode, unspecified; Z59.0 Homelessness; R45.851 Suicidal ideations
CPT/HCPCS: 99285; 99283

== ENCOUNTER 2020-04-14 09:31 | Emergency (ER) | payer MEDICAID, SELFPAY ==
[2020-04-14 09:34] VITALS: BP 137/96; PULSE 82; RESP 16; TEMP 36.8; O2SAT 98
--- NOTE | 2020-04-14 09:39 | ED.GENADUL_ITS ---
Discharge Plan Disposition Patient Disposition: HOME Condition: Stable Discharge Details Chief Complaint: DentalOral Clinical Impression: Dental infection, Dental caries Primary Care Provider: None,None ED Provider: Shannan Covington Home Meds and New Rx's Prescriptions: New penicillin V potassium 500 mg tablet 500 mg PO QID 7 Days Qty: 28 RF: 0 Continued buprenorphine-naloxone [Suboxone] 8-2 mg film RF: 0 Discharge Instructions Instructions: Dental Caries (ED) Additional Instructions: Drink plenty of fluids and get plenty of rest. Take the antibiotics until finished. Alternate tylenol and motrin as needed and directed for pain. Call your dentist today to schedule a follow-up appointment for reevaluation. Return to the emergency department with any worsening or new concerning symptoms. Discharge Data Discharge Physician: Shannan Covington Medical Decision Making 24-year-old male who presents with dental pain for the past 3 days. Dental pain and caries noted around tooth #1, 32 and 28. No obvious dental abscess noted. No fever, trismus, drooling, submandibular swelling. We will treat for dental infection in setting of likely dental caries. Prescription for penicillin given. Patient advised to call his dentist today for follow-up. Usual and customary return precautions given prior to discharge. Medical Records Medical records reviewed: Yes I reviewed the patient's medical records. HPI General Mode of arrival: ambulatory . Date/Time Provider Initiated Documentation: 04/14/20 09:32 . Limitations to Documentation: no limitations . Information obtained by: patient . HPI Narrative: Patient is a 24-year-old male who presents with dental pain for the past 3 days. Patient states he has broken his teeth in the past but denies any recent injury. He states for the past 3 days he has had pain in 3 particular teeth on the right side. He denies any known fever, difficulty swallowing or neck pain. Patient states he has a dentist but he has not called them. Related Data Home Medications Medication Instructions Recorded Confirmed buprenorphine-naloxone [Suboxone] film 04/14/20 04/14/20 penicillin V potassium 500 mg PO QID 7 Days #28 tab 04/14/20 Previous Rx's Medication Instructions Recorded penicillin V potassium 500 mg PO QID 7 Days #28 tab 04/14/20 Allergies Allergy/AdvReac Type Severity Reaction Status Date / Time No Known Allergies Allergy Unverified 04/14/20 09:37 General Stated Complaint: DentalOral NERIS: 4 Review of Systems All systems reviewed & are unremarkable except as noted in HPI and below Constitutional Constitutional: Reports as per HPI, Denies chills and Denies fever(s) Eyes Eyes: Denies blurry vision ENT Ears, Nose, Mouth, and Throat: Reports dental pain, Denies dizziness, Denies sore throat and Denies throat swelling Cardiovascular Cardiovascular: Denies chest pain and Denies dyspnea Respiratory Respiratory: Denies cough and Denies dyspnea Gastrointestinal Gastrointestinal: Denies abdominal pain, Denies diarrhea and Denies vomiting Genitourinary Genitourinary: Denies hematuria and Denies dysuria Musculoskeletal Musculoskeletal: Denies back pain and Denies numbness Integumentary/Breasts Skin/Breast: Denies lesions and Denies rash Neurologic Neurologic: Denies dizziness, Denies localized weakness and Denies numbness Allergic/Immunologic Allergic/Immunologic: Denies throat swelling [facility] Social History Smoking/Tobacco Use Status: Current every day Tobacco Type: cigarettes Alcohol Intake: never Drug use: Daily Substance use type: marijuana, crack/cocaine, heroin and opiates Do you feel safe in your relationship?: Yes Exam Const General: cooperative, healthy appearing and no acute distress HENMT Head: normal to inspection Ears: hearing grossly normal bilaterally and external ears normal General nose exam: external nose normal Mouth: oral mucosae normal, no drooling and no trismus Teeth and gingiva: caries and poor dentition Teeth image: 1. Dental caries, impacted teeth. Tenderness to palpation 2. Dental caries, tenderness to palpation Throat: posterior oropharynx normal Eyes General: appearance normal, both eyes and all related structures Neck Neck: normal visual inspection, no lymphadenopathy, no meningeal signs, trachea midline, supple and No submandibular swelling Resp Effort & Inspection: normal respiratory effort and able to speak in complete sentences Cardio Rate: regular rate Skin General skin exam: no rashes or lesions noted Neuro General: patient alert, patient awake and patient oriented x3 Motor: muscle tone normal throughout Extrem General: normal to inspection and full ROM Psych Appearance: grossly normal Affect: normal affect Course Vital Signs Vital signs: Vital Signs Temperature 98.2 F 04/14/20 09:34 Pulse 82 04/14/20 09:34 Respiratory Rate 16 04/14/20 09:34 Blood Pressure 137/96 H 04/14/20 09:34 Pulse Oximetry 98 04/14/20 09:34 Temperature 98.2 F 04/14/20 09:34 Temperature Source Skin 04/14/20 09:34 Pulse 82 04/14/20 09:34 Respiratory Rate 16 04/14/20 09:34 Respiratory Effort 04/14/20 09:37 Blood Pressure 137/96 H 04/14/20 09:34 Pulse Oximetry 98 04/14/20 09:34 Oxygen Delivery Method Room Air 04/14/20 09:34 Oxygen Flow Rate 0 04/14/20 09:34 Pain Level 10 04/14/20 09:34
== END 2020-04-14 09:58 | disposition home or self-care (01) ==
LOC: ER 09:55
PROVIDERS: Emergency Provider Physician Assistant
DX: R68.84 Jaw pain (principal); K04.7 Periapical abscess without sinus
CPT/HCPCS: 99283

== ENCOUNTER 2020-06-06 18:01 | Emergency (ER) | payer MEDICAID, SELFPAY ==
[2020-06-06 18:13] VITALS: BP 110/79; PULSE 115; RESP 16; TEMP 37; O2SAT 93
--- NOTE | 2020-06-06 18:16 | ED.GENADUL_ITS ---
Discharge Plan Disposition Patient Disposition: HOME Condition: Good Discharge Details Chief Complaint: Sorethroat Clinical Impression: Strep throat Primary Care Provider: None,None ED Provider: Raven Sevilla Home Meds and New Rx's Prescriptions: New penicillin V potassium 500 mg tablet 500 mg PO BID Qty: 20 RF: 0 Discharge Instructions Instructions: Strep Throat (ED) Additional Instructions: Your strep test was positive. Please encourage water intake. Tylenol is of no significance comfort. Please take penicillin as prescribed. Even if symptoms improve, please take the entire course. You will need to change recheck in 48 hours. If you are unable to stay hydrated, develop increased pain, or other new/worsening symptoms please seek care urgently once again. Otherwise, please follow-up with primary care in 1 week for reevaluation. Discharge Data Discharge Date/Time-TO BE ENTERED AT DEPARTURE: 06/06/20 18:50 Medical Decision Making Patient is a pleasant 24-year-old male presenting today with chief complaint of sore throat. States this began 3 to 4 days ago. He did share a bowl of kade valero with friend who is later diagnosed with throat. His rapid strep was positive. He does have clinical findings suggest strep throat. He does not appear systemically ill. He is able to hydrate. He is able to tolerate medications. Has not had any difficulty breathing, no airway compromise. Plan to treat with p.o. antibiotics. Patient I did discuss with/benefits of the antibiotics and he would prefer treatment with this. He was given return precautions. All his questions and concerns were addressed and he is agreement this plan. HPI General Mode of arrival: ambulatory . Date/Time Provider Initiated Documentation: 06/06/20 18:16 . Limitations to Documentation: no limitations . Information obtained by: patient and RN notes reviewed . History of Present Illness 24 year old M presents to the emergency department with the chief complaint of Sore throat, described as moderate, with intensity rated at 8. Quality is described as burning, Patient reports no radiation. Patient started experiencing this day(s) (3) and it has been constant. No relieving factors improve symptom(s), No exacerbating factors reported . Patient notes loss of appetite (states that this increases his pain); denies cough, fever/chills, nausea/vomiting, rash, shortness of breath and weakness. Patient did receive the following treatments prior to arrival, none Related Data Home Medications Medication Instructions Recorded Confirmed penicillin V potassium 500 mg PO BID #20 tab 06/06/20 Previous Rx's Medication Instructions Recorded penicillin V potassium 500 mg PO BID #20 tab 06/06/20 Allergies Allergy/AdvReac Type Severity Reaction Status Date / Time No Known Allergies Allergy Unverified 06/06/20 18:16 General Stated Complaint: Sorethroat NERIS: 4 Review of Systems Constitutional Constitutional: Reports as per HPI, Denies chills, Denies fever(s), Denies headache(s) and Reports poor appetite Eyes Eyes: Reports as per HPI, Denies eye discharge and Denies irritation ENT Ears, Nose, Mouth, and Throat: Reports as per HPI and Denies headache(s) Cardiovascular Cardiovascular: Reports as per HPI, Denies chest pain and Denies dyspnea Respiratory Respiratory: Reports as per HPI and Denies dyspnea Gastrointestinal Gastrointestinal: Reports as per HPI, Denies abdominal pain, Denies change in bowel habits, Denies nausea and Denies vomiting Integumentary/Breasts Skin/Breast: Reports as per HPI and Denies rash Neurologic Neurologic: Reports as per HPI and Denies headache(s) [facility] Medical History (Updated 06/06/20 @ 18:42 by NICOLAS Sanches) Arm fracture, left Asthma Clavicle fracture Social History Smoking/Tobacco Use Status: Current every day Tobacco Type: cigarettes Alcohol Intake: never Drug use: Daily Substance use type: marijuana, crack/cocaine, heroin and opiates Do you feel safe in your relationship?: Yes Exam Const General: cooperative, healthy appearing, comfortable, no acute distress, well developed and well groomed Nutritional Appearance: average body habitus and well nourished Orientation: alert and awake [facility] Head: normal to inspection, normocephalic and atraumatic Ears: hearing grossly normal bilaterally, external ears normal and TM's normal bilaterally General nose exam: external nose normal and nares normal Face and sinus: normal facial exam, sinuses nontender and face symmetric Mouth: oral mucosae normal, lip normal, tongue normal, oropharynx normal, moist mucous membranes, no trismus and No restricted motion Teeth and gingiva: dentition normal Throat: uvula midline and abnormal tonsil bilaterally erythema, exudates and hypertrophy 1+ Eyes General: appearance normal, both eyes and all related structures Neck Neck: normal visual inspection, full ROM, no lymphadenopathy and no meningeal signs Resp Effort & Inspection: normal respiratory effort, able to speak in complete sentences and no respiratory distress Auscultation: clear to auscultation bilaterally, no rales, no rhonchi and no wheezes Cardio Rate: regular rate Rhythm: regular rhythm Heart Sounds: S1 normal and S2 normal Skin General skin exam: no rashes or lesions noted Neuro General: patient alert and patient awake Cognition: normal cognition Speech: speech normal Gait: normal gait Psych Appearance: grossly normal and well kempt Mental Status: mental status grossly normal Speech and Movement: speech and movement normal Course Vital Signs Vital signs: Vital Signs Temperature 37 C 06/06/20 18:13 Pulse 115 H 06/06/20 18:13 Respiratory Rate 16 06/06/20 18:13 Blood Pressure 110/79 06/06/20 18:13 Pulse Oximetry 93 L 06/06/20 18:13 Temperature 37 C 06/06/20 18:13 Temperature Source Skin 06/06/20 18:13 Pulse 115 H 06/06/20 18:13 Respiratory Rate 16 06/06/20 18:13 Respiratory Effort Non-Labored 06/06/20 18:13 Blood Pressure 110/79 06/06/20 18:13 Blood Pressure Position Sitting 06/06/20 18:13 Pulse Oximetry 93 L 06/06/20 18:13 Oxygen Delivery Method Room Air 06/06/20 18:13 Oxygen Flow Rate 0 06/06/20 18:13 Pain Level 8 06/06/20 18:13
== END 2020-06-06 18:50 | disposition home or self-care (01) ==
PROVIDERS: Emergency Provider Physician Assistant
DX: J02.0 Streptococcal pharyngitis (principal)
CPT/HCPCS: 87880; 99283

== ENCOUNTER 2022-04-04 15:27 | Emergency (ER) | payer MEDICAID, SELFPAY ==
[2022-04-04 15:34] VITALS: BP 139/84; PULSE 72; RESP 16; TEMP 36.7; O2SAT 100
--- NOTE | 2022-04-04 15:48 | ED.GENADUL_ITS ---
Discharge Plan Disposition Patient Disposition: HOME Condition: Stable Discharge Details Clinical Impression: Tooth ache Primary Care Provider: Unknown,Unknown ED Provider: Marimar Miranda Home Meds and New Rx's Prescriptions: New clindamycin HCl 150 mg capsule 450 mg PO TID 10 Days Qty: 90 0RF Rx Instructions: Take with Yogurt or a probiotic No Action buprenorphine-naloxone [Suboxone] 8-2 mg film 8 film sublingual DAILY Discharge Instructions Instructions: Toothache (ED) Additional Instructions: Please make an appointment with a dentist as soon as possible. They will probably watch on the antibiotics for 4 to 6 days before seeing you. Please take antibiotics as directed with yogurt or probiotic. Practice good oral hygiene brushes teeth twice daily rinse out your mouth after eating or drinking anything. Try to cut back on smoking. Use the HurriCaine gel topically up to 3 times daily as needed for pain. Please take Tylenol or Ibuprofen with food every 4-6 hours as needed for pain and swelling. Follow up with primary care provider in 3-5 days. Return to ED sooner if any worsening or concerns. Increase oral fluids. Medical Decision Making 26-year-old male presents with right lower jaw pain x1 week. Was taking c lindamycin. And stopped taking it 2 days ago. No toxic signs or symptoms. Discussed home care good oral hygiene and following up with dentist. Patient was given benzocaine topical gel and clindamycin 450 mg here in the department. We will plan to give a prescription for 10 days of clindamycin and dental resources. No evidence of trismus no drainable abscess noted. Patient is otherwise nontoxic. This text was generated using [employer] dictation system, please disregard any oddities of phrase or misspellings. HPI General Mode of arrival: ambulatory . Date/Time Provider Initiated Documentation: 04/04/22 15:40 . Limitations to Documentation: no limitations . Information obtained by: patient, RN notes reviewed and old records reviewed . HPI Narrative: 26-year-old male presents to the ER with chief complaint of right lower tooth pain which has been ongoing for approximately a week ago. She reports radiation of pain down into his right side of his neck. He also reports a bad taste in his mouth. Denies any fever chills speaking in full sentences. There is no evidence of abscess or area of fluctuance no drainage noted. He does have 3 eroded molars on his right lower gum. Does have some swelling gingiva erythemic gingiva surrounding. No cervical lymphadenopathy palpated. He also reports that 2 days ago he took some of his friends clindamycin and he reports that it had gotten better and then became worse. Does take Suboxone daily, does have a history of asthma and he vapes. Related Data Home Medications Medication Instructions Recorded Confirmed buprenorphine 8 mg-naloxone 2 mg 8 film sublingual DAILY 04/04/22 04/04/22 sublingual film (Suboxone) clindamycin HCl 150 mg capsule 450 mg PO TID tooth infection 10 04/04/22 days #90 caps Previous Rx's Medication Instructions Recorded clindamycin HCl 150 mg capsule 450 mg PO TID tooth infection 10 04/04/22 days #90 caps Allergies Allergy/AdvReac Type Severity Reaction Status Date / Time No Known Allergies Allergy Unverified 06/06/20 18:16 General Stated Complaint: DentalOral NERIS: 4 Review of Systems Constitutional Constitutional: Denies headache(s) ENT Ears, Nose, Mouth, and Throat: Reports as per HPI, Denies abnormal hearing, Reports dental pain, Denies dysphagia, Denies dizziness, Denies otalgia, Reports facial pain, Denies headache(s), Denies hoarseness, Denies neck mass, Reports neck pain, Denies nose pain, Denies odynophagia, Denies throat swelling and Denies tongue swelling Cardiovascular Cardiovascular: Denies chest pain and Denies dyspnea Respiratory Respiratory: Denies dyspnea Gastrointestinal Gastrointestinal: Denies dysphagia and Denies odynophagia Musculoskeletal Musculoskeletal: Reports neck pain Neurologic Neurologic: Denies abnormal hearing, Denies dizziness and Denies headache(s) Allergic/Immunologic Allergic/Immunologic: Denies throat swelling and Denies tongue swelling PFSH All Active Problems (Updated 04/04/22 @ 15:53 by Marimar Miranda NP) Tooth ache (Acute) Medical History (Updated 04/04/22 @ 15:53 by Marimar Miranda NP) Arm fracture, left Asthma Clavicle fracture Social History Smoking/Tobacco Use Status: Current every day Tobacco Type: cigarettes Smoking risk assessment performed?: Yes Alcohol Intake: never Drug use: Current Sobriety Substance use type: marijuana and opiates Details: on suboxone Do you feel safe at home: Yes Do you feel safe in your relationship?: Yes Exam [facility] Head: normal to inspection General nose exam: external nose normal and nares normal Face and sinus: normal facial exam, sinuses nontender, face symmetric, no erythema and no edema Mouth: oral mucosae normal, lip normal, tongue normal, oropharynx normal, no drooling and no muffled voice Teeth and gingiva: abnormal tooth or associated gingiva lower right third molar tender, avulsed and with associated gingival edema; without sulcal bleeding, well fixed and without associated gingival fluctuance, caries, gingiva abnormal and poor dentition Teeth image: 1. Dental raheem 2. Dental raheem 3. Avulsed all the way to the gingival line. Throat: posterior oropharynx normal Neck Neck: normal visual inspection, full ROM, no lymphadenopathy, no meningeal signs, trachea midline and supple Course Vital Signs Vital signs: Vital Signs Temperature 36.7 C 04/04/22 15:34 Pulse 72 04/04/22 15:34 Respiratory Rate 16 04/04/22 15:34 Blood Pressure 139/84 04/04/22 15:34 Pulse Oximetry 100 04/04/22 15:34 Temperature 36.7 C 04/04/22 15:34 Pulse 72 04/04/22 15:34 Respiratory Rate 16 04/04/22 15:34 Respiratory Effort 04/04/22 15:38 Blood Pressure 139/84 04/04/22 15:34 Pulse Oximetry 100 04/04/22 15:34 Pain Level 8 04/04/22 15:38
[2022-04-04] MEDS: Clindamycin 150 MG CAP 450 MG PO (15:58)
[2022-04-04] MEDS: Benzocaine 20% Gel 30 GM JAR MM (15:58)
== END 2022-04-04 15:59 | disposition home or self-care (01) ==
PROVIDERS: Emergency Provider Registered Nurse Emergency
DX: K08.89 Other specified disorders of teeth and supporting structures (principal); J45.909 Unspecified asthma, uncomplicated; F17.210 Nicotine dependence, cigarettes, uncomplicated
CPT/HCPCS: 99283

== ENCOUNTER 2022-06-12 02:02 | Emergency (ER) | payer MEDICAID, SELFPAY ==
[2022-06-12 02:07] VITALS: BP 123/83; PULSE 64; RESP 14; TEMP 35.7; O2SAT 100
--- NOTE | 2022-06-12 02:51 | W.ED.GENAD ---
Discharge Plan Disposition Patient Disposition: HOME Condition: Good Discharge Details Clinical Impression: Acute foreign body of left eye Primary Care Provider: Valerie Lafleur ED Provider: Evens Nina Home Meds and New Rx's Prescriptions: No Action buprenorphine-naloxone [Suboxone] 8-2 mg film 8 film sublingual DAILY Discharge Instructions Instructions: Eye Foreign Body (ED) Additional Instructions: Thankfully the 3 foreign bodies have been removed from your eyeball, however there is still a very small amount of rust present at one of the sites. Please follow-up with Dr. Bradshaw tomorrow for reevaluation. Please apply the erythromycin ointment and a thin strip, every 6 hours. If you notice any worsening of your symptoms, or any new symptoms such as worsening vision, worsening pain, vomiting, diarrhea, fever, chills, shortness of breath, chest pain, numbness, weakness, or fainting , please return immediately to the emergency department for reevaluation. Please follow up with your primary care provider as soon as possible for reassessment and reevaluation. As always, it was a pleasure participating in your medical care today. Referrals: [facility] [Outside] Medical Decision Making 26-year-old male whose immunizations are up-to-date including his tetanus, presents today for evaluation of left eye pain. 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 This continued throughout the night, and pain worsened. Eventually it got to a severe point, and he came to the ER for further assessment. Pain is made worse with bright light and lying flat. Improved by nothing. He denies any other complaints at this time. She does not wear contact lenses. No other complaints at this time. Physical exam demonstrates 3 rest and metal flecks in the eye. The 2 inferior ones were easily removed with a cotton tip swab. He minimal strand of rust ring was scraped off for the lower 1 that was present. However the central 1 that is right over the pupil had a large metallic rust fragment, with a large rust ring as well. This was not easily removed with the cotton tips or the catheter tip. Unfortunately her slit-lamp light bulb is not working, and so magnification was needed and used only through the portable head piece. Utilizing this in a TB needle I was able to extract the metal, and the majority of the rust ring, however I did not want to use the optical bur over the pupil secondary to risk of potential scarring. We will recommend prompt follow-up with ophthalmology tomorrow. Patient otherwise feels much better. All foreign bodies were otherwise removed. Patient stable for discharge with close follow-up. Discussed red flags which to return. I have extensively reviewed the treatment plan and discharge instructions with the patient. I have addressed all patient concerns at this time. The patient was made aware of what symptoms to monitor for that would warrant a return to the emergency department. Discussed the plan with the patient, they demonstrate verbal understanding and agreement with our assessment and plan at this time. The documentation in this chart was dictated using [employer] dictation software. Please excuse any dictation errors. HPI General Date/Time Provider Initiated Documentation: 06/12/22 02:09. HPI Narrative: 26-year-old male whose immunizations are up-to-date including his tetanus, presents today for evaluation of left eye pain. 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 This continued throughout the night, and pain worsened. Eventually it got to a severe point, and he came to the ER for further assessment. Pain is made worse with bright light and lying flat. Improved by nothing. He denies any other complaints at this time. She does not wear contact lenses. No other complaints at this time. Related Data Home Medications Medication Instructions Recorded Confirmed buprenorphine 8 mg-naloxone 2 mg 8 film sublingual DAILY 04/04/22 06/12/22 sublingual film (Suboxone) Allergies Allergy/AdvReac Type Severity Reaction Status Date / Time No Known Allergies Allergy Unverified 06/06/20 18:16 General Stated Complaint: EyeProblem NERIS: 4 Review of Systems All systems reviewed & are unremarkable except as noted in HPI and below PFSH All Active Problems Acute foreign body of left eye (Acute) Medical History Arm fracture, left Asthma Clavicle fracture Social History Smoking/Tobacco Use Status: Current every day Tobacco Type: e-cigarettes Smoking risk assessment performed?: Yes Alcohol Intake: never Drug use: Current Sobriety Substance use type: marijuana and opiates Details: On suboxone Do you feel safe at home: Yes Do you feel safe in your relationship?: Yes Exam Narrative Exam Narrative: 1.Const: Well-nourished, Well-developed, appearing stated age 2.Eyes: PERRL, right eyes unremarkable. Left eye: EOMI, PERRL, Peripheral vision intact. No nystagmus. No clinical signs of septal/orbital cellulitis, no redness around the eye, no proptosis. No hyphema, no signs of trauma around the eye, no periorbital emphysema. No sluggishness of the pupil. No ophthalmoplegia. No afferent pupillary defect. Small corneal abrasion over the pupil, that the center of it is seen metal flake. There are 2 other metal flakes in the 3 o'clock position and the 8 o'clock position. Negative Patricia sign. Eversion of the upper and lower lids reveals no evidence of foreign bodies. 3.ENT: Atraumatic external nose and ears. Moist MM. Neck: Symmetric, trachea midline, No thyromegaly. 4.CVS: +S1/S2, No murmurs or gallops. Peripheral pulses 2+ and equal in all extremities. Brisk capillary refill in all extremities. 5.RESP: Unlabored respiratory effort. Clear to auscultation bilaterally. No wheezes rales or rhonchi 6.GI: Soft, Nontender/Nondistended, No hepatosplenomegaly. No guarding or rebound. 7.MSK: Normocephalic/Atraumatic, Extremities w/o deformity or ttp No cyanosis or clubbing, Normal movement of all extremities 8.Skin: Warm, Dry. No rashes or lesions. 9.Neuro: team physician II-XII grossly intact. Sensation grossly intact, no focal neurologic deficits. 10.Psych: (AAO) x3. Appropriate mood and affect Course Vital Signs Vital signs: Vital Signs Temperature 35.7 C L 06/12/22 02:07 Pulse 64 06/12/22 02:07 Respiratory Rate 14 06/12/22 02:07 Blood Pressure 123/83 06/12/22 02:07 Pulse Oximetry 100 06/12/22 02:07 Temperature 35.7 C L 06/12/22 02:07 Temperature Source Tympanic 06/12/22 02:07 Pulse 64 06/12/22 02:07 Respiratory Rate 14 06/12/22 02:07 Respiratory Effort Non-Labored 06/12/22 02:11 Blood Pressure 123/83 06/12/22 02:07 Blood Pressure Position Sitting 06/12/22 02:07 Pulse Oximetry 100 06/12/22 02:07 Oxygen Delivery Method Room Air 06/12/22 02:07 Oxygen Flow Rate 0 06/12/22 02:07 Pain Level 6 06/12/22 02:07 Procedures Foreign Body Removal Time Out Performed: yes Site: other (Left eye) FB Removal Eye Time Out performed: Yes Location: eye (L) Topical anesthetic used: tetracaine Foreign body: metal Evidence of corneal penetration: No Technique: irrigation, cotton tip swab and needle Procedure performed under: direct visualization with magnification Post-procedure medication: ophthalmic antibiotic and topical anesthetic Patient tolerated procedure: well and no complications Complications: residual rust ring PAWSS Have you Been Recently Intoxicated or Drunk Within the Last 30 days?: No Have you Ever Experienced Previous Episodes of Alcohol Withdrawal?: No Have you ever Experienced Withdrawal Seizures?: No Have you ever Experienced Delirium Tremens(DT)s?: No Have you ever undergone Alcohol Rehabilitation Treatment (i.e, inpt ot outpatient treatment programs)?: No Have you ever Experienced Blackouts?: No Have you ever Combined Alcohol with other Downers within the last 90 days?: No Have you ever Combined Alcohol with any other Substance of Abuse during the last 90 days?: No Positive Blood Alcohol level on Presentation? [PCS.BAL]: No Evidence of Increased Autonomic Activity (i.e. HR>120, tremor, sweating, agitation, nausea)?: No Result: 0
--- NOTE | 2022-06-12 02:57 | NUR.NOTE ---
Referral faxed to [facility] to f/u 06/12/22 for a rust ring Nursing Note:
[2022-06-12] MEDS: Acetaminophen 500 MG TAB 1000 MG PO (02:59)
[2022-06-12] MEDS: Erythromycin Ophth Oint 3.5 GM TUBE (02:59)
[2022-06-12] MEDS: Tetracaine 0.5% 4 ML BTL (03:00)
[2022-06-12] MEDS: Fluorescein STRIPS 100/BOX 1 MG (03:00)
[2022-06-12] MEDS: Ibuprofen 800 MG TAB PO (03:00)
[2022-06-12 03:05] VITALS: BP 123/83; PULSE 64; RESP 14; TEMP 35.7; O2SAT 100
== END 2022-06-12 03:04 | disposition home or self-care (01) ==
PROVIDERS: Emergency Provider Student in an Organized Health Care Education/Training Program; PCP Nurse Practitioner
DX: T15.92XA Foreign body on external eye, part unspecified, left eye, initial encounter (principal); F17.290 Nicotine dependence, other tobacco product, uncomplicated; S05.02XA Injury of conjunctiva and corneal abrasion without foreign body, left eye, initial encounter; X58.XXXA Exposure to other specified factors, initial encounter
CPT/HCPCS: 65205; 99283; 99284

== ENCOUNTER 2023-01-22 23:48 | Emergency (ER) | payer MEDICAID, SELFPAY ==
[2023-01-22 23:51] VITALS: BP 135/98; PULSE 85; RESP 19; TEMP 36.6; O2SAT 100
[2023-01-23] MEDS: Tetracaine 0.5% 4 ML BTL
[2023-01-23] MEDS: Erythromycin Ophth Oint 3.5 GM TUBE
[2023-01-23] MEDS: Fluorescein STRIPS 100/BOX 1 MG
--- NOTE | 2023-01-23 00:01 | ED.GENADUL_ITS ---
Discharge Plan Disposition Patient Disposition: Home Condition: Good Discharge Details Clinical Impression: Abrasion of cornea, right, Acute foreign body of right cornea Primary Care Provider: Valerie Lafleur ED Provider: Evens Nina Home Meds and New Rx's Prescriptions: No Action buprenorphine-naloxone [Suboxone] 8-2 mg film 8 film sublingual DAILY Discharge Instructions Instructions: Corneal Abrasion (ED) Additional Instructions: Please apply the erythromycin ointment every 4-6 hours. Always wear protection when working with grinders or rest. If you notice any worsening of your symptoms, or any new symptoms such as vomiting, diarrhea, fever, chills, shortness of breath, chest pain, numbness, weakness, or fainting , please return immediately to the emergency department for reevaluation. Please follow up with your primary care provider as soon as possible for reassessment and reevaluation. As always, it was a pleasure participating in your medical care t steve. Referrals: Valerie Lafleur [Primary Care Provider] - Discharge Data Discharge Date/Time-TO BE ENTERED AT DEPARTURE: 01/23/23 00:06 Medical Decision Making 27-year-old male with no significant past medical history who does not have his current tetanus up-to-date secondary to refusal to take the tetanus shot, presents today for pain in his right eye. 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 He came into the ER for further evaluation after trying to wash it out himself. He did see evidence of a foreign body in the right eye, but was unable to get it out with the tissue. Patient denies any vision changes. He does complain of mild pain in the right eye. No other complaints at this time. Exam demonstrates a small rust foreign body in the medial aspect of the eye and a small corneal abrasion on the right. The lot of rest was removed with a Q-tip without any difficulty. No foreign bodies on eversion of the lids. Patient is not a contact lens wear. Patient continues to refuse tetanus update. Patient feels well after procedure. Visual acuity normal. Discussed red flags for which to return. I have extensively reviewed the treatment plan and discharge instructions with the patient. I have addressed all patient concerns at this time. The patient was made aware of what symptoms to monitor for that would warrant a return to the emergency department. Discussed the plan with the patient, they demonstrate verbal understanding and agreement with our assessment and plan at this time. The documentation in this chart was dictated using [employer] dictation software. Please excuse any dictation errors. HPI General Date/Time Provider Initiated Documentation: 01/22/23 23:49 . HPI Narrative: 27-year-old male with no significant past medical history who does not have his current tetanus up-to-date secondary to refusal to take the tetanus shot, presents today for pain in his right eye. 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 He came into the ER for further evaluation after trying to wash it out himself. He did see evidence of a foreign body in the right eye, but was unable to get it out with the tissue. Patient denies any vision changes. He does complain of mild pain in the right eye. No other complaints at this time. Related Data Home Medications Medication Instructions Recorded Confirmed buprenorphine 8 mg-naloxone 2 mg 8 film sublingual DAILY 04/04/22 06/12/22 sublingual film (Suboxone) Allergies Allergy/AdvReac Type Severity Reaction Status Date / Time No Known Allergies Allergy Unverified 06/06/20 18:16 General Stated Complaint: EyeProblem NEIRS: 4 Review of Systems All systems reviewed & are unremarkable except as noted in HPI and below PFSH All Active Problems Abrasion of cornea, right (Acute) Acute foreign body of right cornea (Acute) Medical History Arm fracture, left Asthma Clavicle fracture Social History Smoking/Tobacco Use Status: Current every day Tobacco Type: e-cigarettes Smoking risk assessment performed?: Yes Alcohol Intake: never Drug use: Current Sobriety Substance use type: marijuana and opiates Details: On suboxone Do you feel safe at home: Yes Do you feel safe in your relationship?: Yes Exam Narrative Exam Narrative: 1.Const: Well-nourished, Well-developed, appearing stated age 2.Eyes: Right eye: EOMI, PERRL, Peripheral vision intact. No nystagmus. Fundoscopic exam shows normal optic discs and normal vasculature. No clinical signs of septal/orbital cellulitis, no redness around the eye, no proptosis. No hyphema, no signs of trauma eversion of the lids show no evidence of foreign body around the eye, no periorbital emphysema. No sluggishness of the pupil. No ophthalmoplegia. No afferent pupillary defect. Fluorescein exam is negative for positive for a small lateral corneal abrasion, and a small speck of rust/metal in the medial aspect., negative Patricia sign. Visual acuity as documented in chart. 3.ENT: Atraumatic external nose and ears. Moist MM. Neck: Symmetric, trachea midline, No thyromegaly. 4.CVS: +S1/S2, No murmurs or gallops. Peripheral pulses 2+ and equal in all extremities. Brisk capillary refill in all extremities. 5.RESP: Unlabored respiratory effort. Clear to auscultation bilaterally. No wheezes rales or rhonchi 6.GI: Soft, Nontender/Nondistended, No hepatosplenomegaly. No guarding or rebound. 7.MSK: Normocephalic/Atraumatic, Extremities w/o deformity or ttp No cyanosis or clubbing, Normal movement of all extremities 8.Skin: Warm, Dry. No rashes or lesions. 9.Neuro: plum packer II-XII grossly intact. Sensation grossly intact, no focal neurologic deficits. 10.Psych: (AAO) x3. Appropriate mood and affect Course Vital Signs Vital signs: Vital Signs Temperature 36.6 C 01/22/23 23:51 Pulse 85 01/22/23 23:51 Respiratory Rate 19 01/22/23 23:51 Blood Pressure 135/98 H 01/22/23 23:51 Pulse Oximetry 100 01/22/23 23:51 Temperature 36.6 C 01/22/23 23:51 Temperature Source Oral 01/22/23 23:51 Pulse 85 01/22/23 23:51 Respiratory Rate 19 01/22/23 23:51 Respiratory Effort Normal 01/22/23 23:59 Respiratory Pattern Normal 01/22/23 23:59 Blood Pressure 135/98 H 01/22/23 23:51 Blood Pressure Position Supine 01/22/23 23:51 Pulse Oximetry 100 01/22/23 23:51 Oxygen Delivery Method Room Air 01/22/23 23:51 Oxygen Flow Rate 0 01/22/23 23:51 Pain Level 3 01/22/23 23:51 Procedures FB Removal Eye Time Out performed: Yes Location: eye (R) Topical anesthetic used: tetracaine Foreign body: metal Evidence of corneal penetration: No Technique: irrigation and cotton tip swab Procedure performed under: direct visualization with magnification Post-procedure medication: ophthalmic antibiotic Patient tolerated procedure: well and no complications
== END 2023-01-23 00:06 | disposition home or self-care (01) ==
PROVIDERS: Emergency Provider Student in an Organized Health Care Education/Training Program; PCP Nurse Practitioner
DX: T15.01XA Foreign body in cornea, right eye, initial encounter (principal); X58.XXXA Exposure to other specified factors, initial encounter; J45.909 Unspecified asthma, uncomplicated
CPT/HCPCS: 65205; 99283

== ENCOUNTER 2023-05-05 18:02 | Emergency (ER) | payer MEDICAID, SELFPAY ==
--- OUTSIDE RECORDS SUMMARY | 2023-05-05 18:09 | XMS_ITS | Continuity of Care Document ---
Author Name Unknown Organization [facility] Address [address] [place] [address] Care Team Providers Care Rn Occupational Health Name Role Phone BEBA SALCEDO Primary Care Physician Encounter [facility] FIN NBR [phone] Date(s): 04/28/23 - 04/28/[address] [id number] Encounter Diagnosis Contact dermatitis(Discharge Diagnosis) - 04/28/23 Discharge Disposition: Home f/u External Provider Attending Physician: Jarad Garcia MD Admitting Physician: Jarad Garcia MD Allergies, Adverse Reactions, Alerts Substance Reaction Severity Status clindamycin Mild Active Medications predniSONE 10 mg oral tablet See Instructions, 4 tabs x3 days, 2 tabs x3 days, 1 tab x3 days then stop, # 21 tab, 0 Refill(s), 05/06/23 18:15:00 EDT, Pharmacy: [facility] #[id number], 162.56, cm, 04/28/23 17:26:00 EDT, Height/Length Dosing, 61.23, kg, 04/28/23 17:26:00 EDT,... Start Date: 04/28/23 Stop Date: 05/06/23 Status: Ordered Vital Signs Most recent to oldest [Reference Range]: 1 Temperature Temporal Artery [36-38 Deg C ] 36.0 Deg C (04/28/23 5:07 PM) Peripheral Pulse Rate [60-100 bpm] 81 bp m (04/28/23 5:07 PM) Respiratory Rate [12-24 br/min] 16 br/mi n (04/28/23 5:07 PM) Blood Pressure [90-140/60-90 mmHg] 124/7 7mmHg (04/28/23 5:07 PM) Weight 61.23 kg (04/28/23 5:07 PM) Weight Dosing 61.23 kg (04/28/23 5:26 PM) Height 162.560 cm (04/28/23 5:07 PM) Height/Length Dosing 162.560 cm (04/28/23 5:26 PM) Body Mass Index 23.000 kg/m2 (04/28/23 5:07 PM) Social History Social History Type Response Tobacco Current everyday tob acco user Tobacco Use:. Sex Hospital Discharge Instructions Patient Education 04/28/2023 16:32:20 Rash, Adult Rash, Adult A rash is a change in the color of your skin. A rash can also change the way your skin feels. Thereare many different conditions and factors that can cause a rash. Some rashes may disappear after a few days, but some may last for a few weeks. Common causes of rashes include: ??? Viral infections, such as: ??? Colds. ??? Measles. ??? Hand, foot, and mouth disease. ??? Bacterial infections, such as: ??? Scarlet fever. ??? Impetigo. ??? Fungal infections, such as Laurel. ??? Allergic reactions to food, medicines, or skin care products. Follow these instructions at home: The goal of treatment is to stop the itching and keep the rash from spreading. Pay attention to anychanges in your symptoms. Follow these instructions to help with your condition: Medicine Take or apply cmpy-izf-tjodstm and prescription medicines only as told by your health care provider. These may include: ??? Corticosteroid creams to treat red or swollen skin. ??? Anti-itch lotions. ??? Oral allergy medicines (antihistamines). ??? Oral corticosteroids for severe symptoms. Skin care ??? Apply cool compresses to the affected areas. ??? Do not scratch or rub your skin. ??? Avoid covering the rash. Make sure the rash is exposed to air as much as possible. Managing itching and discomfort ??? Avoid hot showers or baths, which can make itching worse. A cold shower may help. ??? Try taking a bath with: ??? Epsom salts. Follow mortuary beautician instructions on the packaging. [facility] these [facility] or grocery store. ??? Baking soda. Pour a small amount into the bath as told by your health care provider. ??? Colloidal oatmeal. Follow mortuary beautician instructions on the packaging. You can get this at your local pharmacy or grocery store. ??? Try applying baking soda paste to your skin. Stir water into baking soda until it reaches a paste-like consistency. ??? Try applying calamine lotion. This is an ptvr-lhq-hrevdyb lotion that helps to relieve itchiness. ??? Keep cool and out of the sun. Sweating and being hot can make itching worse. General instructions ??? Rest as needed. ??? Drink enough fluid to keep your urine pale yellow. ??? Wear loose-fitting clothing. ??? Avoid scented soaps, detergents, and perfumes. Use gentle soaps, detergents, perfumes, and other cosmetic products. ??? Avoid any substance that causes your rash. Keep a journal to help track what causes your rash. Write down: ??? What you eat. ??? What cosmetic products you use. ??? What you drink. ??? What you wear. This includes jewelry. ??? Keep all follow-up visits as told by your health care provider. This is important. Contact a health care provider if: ??? You sweat at night. ??? You lose weight. ??? You urinate more than normal. ??? You urinate less than normal, or you notice that your urine is a darker color than usual. ??? You feel weak. ??? You vomit. ??? Your skin or the whites of your eyes look yellow (jaundice). ??? Your skin: ??? Tingles. ??? Is numb. ??? Your rash: ??? Does not go away after several days. ??? Gets worse. ??? You are: ??? Unusually thirsty. ??? More tired than normal. ??? You have: ??? New symptoms. ??? Pain in your abdomen. ??? A fever. ??? Diarrhea. Get help right away if you: ??? Have a fever and your symptoms suddenly get worse. ??? Develop confusion. ??? Have a severe headache or a stiff neck. ??? Have severe joint pains or stiffness. ??? Have a seizure. ??? Develop a rash that covers all or most of your body. The rash may or may not be painful. ??? Develop blisters that: ??? Are on top of the rash. ??? Grow larger or grow together. ??? Are painful. ??? Are inside your nose or mouth. ??? Develop a rash that: ??? Looks like purple pinprick-sized spots all over your body. ??? Has a bull's eye or looks like a target. ??? Is not related to sun exposure, is red and painful, and causes your skin to peel. Summary ??? A rash is a change in the color of your skin. Some rashes disappear after a few days, but some may last for a few weeks. ??? The goal of treatment is to stop the itching and keep the rash from spreading. ??? Take or apply nnvo-tpm-kswypsk and prescription medicines only as told by your health care provider. ??? Contact a health care provider if you have new or worsening symptoms. ??? Keep all follow-up visits as told by your health care provider. This is important. This information is not intended to replace advice given to you by your health care provider. Make sure you discuss any questions you have with your health care provider. Document Revised: 07/04/2022 Document Reviewed: 07/04/2022 [employer] Patient Education ?? 2022 [employer]. Follow Up Care 04/28/2023 17:07:44 With:Follow-up with your primary care Address: When:1 week Comments:Follow-up with your primary care as needed, they will be able to reevaluate if necessaryReturn to ED if concerns Discharge instructions * Event Display: Discharge Instructions Physician Emergency department Note * NICOLAS Bender: PERFORM Event Display: ED Note Physician Authored Date: [id number] ANAIS ANDREW :1995 Age:27 years Sex:Male Visit Date:04/28/2023 Primary Care Physician: BEBA SALCEDO Basic Information Time Seen: NICOLAS Bender / 04/28/2023 17:08 Chief Complaint pt reports using new lube last night and has a rash to his genitals in lower abd, 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 ??He notes that??4 days ago he did use??lube during intercourse that was??what he states old??and he feels as though this may be a reaction. ??He also works in the [employer]??and may have picked up??poison shon at some point in time. ??He notes that this is itchy??and??there is no weeping or irritation. ??He is not having any pain with urination or ejaculation??and has no testicular pain or concern. ??Patient has been with a single partner??for??greater than 1 year and??she is in the room currently??stating that there is no concern for STD. Review of Systems: See HPI Physical Exam Vitals & Measurements T:??36.0?C ??(Temporal Artery)?? HR:??81??(Peripheral)?? RR:??16?? BP:??124/77?? SpO2:??97%?? HT:??162.560??cm?? WT:??61.23??kg?? BMI:??23.000?? O2 Therapy:??Room air?? Patient is alert oriented appropriate nontoxic Neck is supple Neuro intact Regular rate and effort Skin is warm and dry??other than rash as described below There is a vesicular rash over the patient's abdomen up to the navel??and to the pubic symphysis region??and onto the penile shaft. ??There is no significant penile discharge??there is no swelling oropen sores.?? Otherwise normal- appearing male genitalia Medical Decision Making: While here in the emergency department patient was evaluated and found to have a contact dermatitis. ??I discussed with him the options and at this point in time??he prefers prednisone. ??He will eliminate the use of the lube??and??will return for any new or worsening symptoms Procedure No Qualifying Data Assessment/Plan 1.??Contact dermatitis??L25.9 Will be given prednisone as below if he has any question concerns or new symptoms he will return for reevaluation. ??He agrees with this discharge plan Orders: predniSONE 10 mg oral tablet, See Instructions, 4 tabs x3 days, 2 tabs x3 days, 1 tab x3 days then stop, # 21 tab, 0 Refill(s), 05/06/23 18:15:00 EDT, Pharmacy: [facility] #[id number], 162.56, cm, 04/28/23 17:26:00 EDT, Height/Length Dosing, 61.23, kg, 04/28/23 17:26:00 EDT,... Discharge Patient, 04/28/23 17:31:00 EDT Patient Education Rash, Adult Follow Up With When Contact Information Follow-up with your primary care Within 1 week Additional Instructions: Follow-up with your primary care as needed, they will be able to reevaluate if necessary Return to ED if concerns Medication Reconciliation New Prescription predniSONE (predniSONE 10 mg oral tablet)4 tabs x3 days, 2 tabs x3 days, 1 tab x3 days then stop. Refills: 0. Problem List/Past Medical History Ongoing No qualifying data Historical No qualifying data Allergies clindamycin Social History Alcohol Current, 1-2 times per week Electronic Cigarette/Vaping Electronic Cigarette Use: Use, within last 90 days. Substance Use Past- Comments: MAT tx with suboxone Tobacco Current everyday tobacco user Tobacco Use:. Electronically Signed on 04/28/23 07:57 PM NICOLAS Bender Emergency department Discharge instructions * NICOLAS Bender: PERFORM Event Display: ED Discharge Information Authored Date: [id number] ANAIS ANDREW :1995 Age:27 years Sex:Male Visit Date:04/28/2023 Primary Care Physician: BEBA SALCEDO Discharge Instructions We would like to thank you for allowing us to assist you with your healthcare needs. The following includes patient education materials and information regarding your injury/illness. Diagnosis from Today's Visit Contact dermatitis Discharge Vitals Temperature??(Temporal Artery) 96.8 ??F (36.0 ??C) Heart Rate??(Peripheral) 81 Respiratory Rate?? 16 Blood Pressure?? 124/77?? Height?? 64.00 in (162.560 cm) Weight?? 135.01 lb (61.23 kg) BMI?? 23.000 Allergies clindamycin What to Do Next You Need to Schedule the Following Appointments Follow Up with??Follow-up with your primary care When:??Within 1 week Why: Follow-up with your primary care as needed, they will be able to reevaluate if necessary Return to ED if concerns You were treated today on an emergency basis; it may be shah to contact your primary care provider to notify them of your visit today. You may have been referred to your regular doctor or a specialist, please follow up as instructed. If your condition worsens or you can't get in to see the doctor, contact the Emergency Department. Medications What How Much When Instructions Next Dose New predniSONE (predniSONE 10 mg oral tablet) See instructions 4 tabs x3 days, 2 tabs x3 days, ??1 tab x3 days then stop ?? Pickup at [facility] #[id number] Pharmacy Information [facility] #[id number]: [address] [place] [address] [phone] Education Materials Rash, Adult A rash is a change in the color of your skin. A rash can also change the way your skin feels. Thereare many different conditions and factors that can cause a rash. Some rashes may disappear after a few days, but some may last for a few weeks. Common causes of rashes include: ? Viral infections, such as: ? Colds. ? Measles. ? Hand, foot, and mouth disease. ? Bacterial infections, such as: ? Scarlet fever. ? Impetigo. ? Fungal infections, such as Laurel. ? Allergic reactions to food, medicines, or skin care products. Follow these instructions at home: The goal of treatment is to stop the itching and keep the rash from spreading. Pay attention to anychanges in your symptoms. Follow these instructions to help with your condition: Medicine Take or apply qygj-qut-rcrnsjw and prescription medicines only as told by your health care provider. These may include: ? Corticosteroid creams to treat red or swollen skin. ? Anti-itch lotions. ? Oral allergy medicines (antihistamines). ? Oral corticosteroids for severe symptoms. Skin care ? Apply cool compresses to the affected areas. ? Do not scratch or rub your skin. ? Avoid covering the rash. Make sure the rash is exposed to air as much as possible. Managing itching and discomfort ? Avoid hot showers or baths, which can make itching worse. A cold shower may help. ? Try taking a bath with: ? Epsom salts. Follow mortuary beautician instructions on the packaging. You can get these at your local pharmacy or grocery store. ? Baking soda. Pour a small amount into the bath as told by your health care provider. ? Colloidal oatmeal. Follow mortuary beautician instructions on the packaging. You can get this at your local pharmacy or grocery store. ? Try applying baking soda paste to your skin. Stir water into baking soda until it reaches a paste-like consistency. ? Try applying calamine lotion. This is an ncip-qys-rpqwipm lotion that helps to relieve itchiness. ? Keep cool and out of the sun. Sweating and being hot can make itching worse. General instructions ? Rest as needed. ? Drink enough fluid to keep your urine pale yellow. ? Wear loose-fitting clothing. ? Avoid scented soaps, detergents, and perfumes. Use gentle soaps, detergents, perfumes, and other cosmetic products. ? Avoid any substance that causes your rash. Keep a journal to help track what causes your rash. Write down: ? What you eat. ? What cosmetic products you use. ? What you drink. ? What you wear. This includes jewelry. ? Keep all follow-up visits as told by your health care provider. This is important. Contact a health care provider if: ? You sweat at night. ? You lose weight. ? You urinate more than normal. ? You urinate less than normal, or you notice that your urine is a darker color than usual. ? You feel weak. ? You vomit. ? Your skin or the whites of your eyes look yellow (jaundice). ? Your skin: ? Tingles. ? Is numb. ? Your rash: ? Does not go away after several days. ? Gets worse. ? You are: ? Unusually thirsty. ? More tired than normal. ? You have: ? New symptoms. ? Pain in your abdomen. ? A fever. ? Diarrhea. Get help right away if you: ? Have a fever and your symptoms suddenly get worse. ? Develop confusion. ? Have a severe headache or a stiff neck. ? Have severe joint pains or stiffness. ? Have a seizure. ? Develop a rash that covers all or most of your body. The rash may or may not be painful. ? Develop blisters that: ? Are on top of the rash. ? Grow larger or grow together. ? Are painful. ? Are inside your nose or mouth. ? Develop a rash that: ? Looks like purple pinprick-sized spots all over your body. ? Has a bull's eye or looks like a target. ? Is not related to sun exposure, is red and painful, and causes your skin to peel. Summary ? A rash is a change in the color of your skin. Some rashes disappear after a few days, but some may last for a few weeks. ? The goal of treatment is to stop the itching and keep the rash from spreading. ? Take or apply aepm-tag-jcrhoju and prescription medicines only as told by your health care provider. ? Contact a health care provider if you have new or worsening symptoms. ? Keep all follow-up visits as told by your health care provider. This is important. This information is not intended to replace advice given to you by your health care provider. Make sure you discuss any questions you have with your health care provider. Document Revised: 07/04/2022 Document Reviewed: 07/04/2022 Elsevier Patient Education ?? 2022 [employer] Inc. Patient/Miller Head Assistant Wet Process Signature Patient Name:KAMRAN ANAIS I have received this information and my questions have been answered. Patient/Miller Head Assistant Wet Process Name: Patient/Miller Head Assistant Wet Process Signature: Relationship to Patient: Witness Name/Signature: Date: Electronically Signed on: 04/28/2023 17:32 EDTSigned by: Patient Care team information Care Team Personnel Name: BEBA SALCEDO Position: No Access Member Role: Primary Care Physician Address: Address: [address] [place] [address] [place] Name: NICOLAS Bender Position: Physician Member Role: Physician Software Engineer Web Services Address: Address: [address] [place] [id number] Name: Lelo Croft Position: Nurse Member Role: ED Nurse
[2023-05-05 18:19] VITALS: BP 112/70; PULSE 66; RESP 16; TEMP 36.7; O2SAT 100
--- NOTE | 2023-05-05 19:33 | ED.GENADUL_ITS ---
Discharge Plan Disposition Patient Disposition: Home Condition: Stable Discharge Details Clinical Impression: Rash Primary Care Provider: Valerie Lafleur ED Provider: Angelito Mcdonald Home Meds and New Rx's Prescriptions: New methylprednisolone [Medrol (Usama)] 4 mg tablets,dose pack 4 mg PO DAILY Qty: 21 0RF Rx Instructions: Take as directed on package instructions Continued buprenorphine-naloxone [Suboxone] 8-2 mg film 8 film sublingual DAILY Discharge Instructions Instructions: Acute Rash (ED) Additional Instructions: We will restart your steroids given your itchy rash. If you have any new or significant worsening of symptoms feel free to return the emergency department for reassessment otherwise take medication as prescribed. You may also use slik-mpf-chkpgio Claritin or Zyrtec. Take daily as this may help with the itching. Referrals: Valerie Lafleur [Primary Care Provider] - 1 week (If not improving) Discharge Data Discharge Date/Time-TO BE ENTERED AT DEPARTURE: 05/05/23 22:19 Medical Decision Making Patient presenting to the emergency department for chief complaint of rash. Patient states that he was seen little more than a week ago and diagnosed with poison shon and given 8 days of steroids. This helped the initial rash but as soon as he stopped the steroids he noted a rash in new areas on his upper thighs. 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 Physical exam shows erythematous excoriated papules to the inner thighs and posterior left knee. Exam is otherwise unremarkable, no signs of anaphylaxis, Sanchez-Guillermo's, diffuse rash, or systemic symptoms. I suspect possible return of rash due to steroids being ceased compared to potential new contact dermatitis versus insect bites. Given this I do feel that patient would benefit from further steroids and monitoring of symptoms. After discussion of diagnosis and plan of care patient has no further needs, questions, or concerns and states clear understanding to return to the emergency department for any worsening symptoms. This documentation was generated using [employer]igo[employer]byation system, please disregard any oddities of phrase or misspellings. HPI General Mode of arrival: ambulatory . Date/Time Provider Initiated Documentation: 05/05/23 18:25 . Limitations to Documentation: no limitations . Information obtained by: patient and RN notes reviewed . History of Present Illness 27 year old M presents to the emergency department with the chief complaint of rash, described as moderate, and is localized to the lower extremity. Patient reports no radiation. Patient started experiencing this week(s) (1) and it has been constant. Medication improves symptom(s), No exacerbating factors reported . Patient notes no other symptoms.. Related Data Home Medications Medication Instructions Recorded Confirmed buprenorphine 8 mg-naloxone 2 mg 8 film sublingual DAILY 04/04/22 05/05/23 sublingual film (Suboxone) methylprednisolone 4 mg tablets in 4 mg PO DAILY #21 dose pk 05/05/23 a dose pack (Medrol (Usama)) Previous Rx's Medication Instructions Recorded methylprednisolone 4 mg tablets in 4 mg PO DAILY #21 dose pk 05/05/23 a dose pack (Medrol (Usama)) Allergies Allergy/AdvReac Type Severity Reaction Status Date / Time clindamycin AdvReac Intermediate Other (See Unverified 05/05/23 18:22 Comment) General Stated Complaint: RashLesion NERIS: 5 Review of Systems Constitutional Constitutional: Denies chills and Denies fever(s) ENT Ears, Nose, Mouth, and Throat: Denies lip swelling, Denies mouth lesions, Denies sore throat, Denies throat swelling and Denies tongue swelling Cardiovascular Cardiovascular: Denies dyspnea Respiratory Respiratory: Denies dyspnea and Denies wheezing Gastrointestinal Gastrointestinal: Denies nausea and Denies vomiting Integumentary/Breasts Skin/Breast: Reports as per HPI, Reports pruritus, Reports erythema and Reports rash Allergic/Immunologic Allergic/Immunologic: Denies lip swelling, Denies throat swelling, Denies tongue swelling and Denies wheezing PFSH All Active Problems (Updated 05/05/23 @ 19:43 by Angelito Mcdonald NP) Rash (Acute) Medical History (Updated 05/05/23 @ 19:43 by Angelito Mcdonald NP) Arm fracture, left Asthma Clavicle fracture Social History Smoking/Tobacco Use Status: Current every day Tobacco Type: e-cigarettes Smoking risk assessment performed?: Yes Alcohol Intake: never Drug use: Current Sobriety Substance use type: marijuana and opiates Details: On suboxone Do you feel safe at home: Yes Do you feel safe in your relationship?: Yes Exam Const General: cooperative and comfortable Orientation: alert and awake [facility] Head: normal to inspection, normocephalic and atraumatic General nose exam: external nose normal Face and sinus: normal facial exam Mouth: lip normal Resp Effort & Inspection: normal respiratory effort and able to speak in complete sentences Skin Rashes: rashes noted papules bilateral multiple locations color red; fluctuant not assessed and nontender Course Vital Signs Vital signs: Vital Signs Temperature 36.7 C 05/05/23 18:19 Pulse 66 05/05/23 18:19 Respiratory Rate 16 05/05/23 18:19 Blood Pressure 112/70 05/05/23 18:19 Pulse Oximetry 100 05/05/23 18:19 Temperature 36.7 C 05/05/23 18:19 Pulse 66 05/05/23 18:19 Respiratory Rate 16 05/05/23 18:19 Blood Pressure 112/70 05/05/23 18:19 Blood Pressure Position Sitting 05/05/23 18:19 Pulse Oximetry 100 05/05/23 18:19 Oxygen Delivery Method Room Air 05/05/23 18:19 Oxygen Flow Rate 0 05/05/23 18:19 Pain Level 0 05/05/23 18:19
[2023-05-05] MEDS: Loratidine 10 MG TAB PO (19:51)
[2023-05-05 20:01] VITALS: BP 112/70; PULSE 66; RESP 16; TEMP 36.7; O2SAT 100
== END 2023-05-05 22:19 | disposition home or self-care (01) ==
PROVIDERS: Emergency Provider Nurse Practitioner Family; PCP Nurse Practitioner
DX: R21 Rash and other nonspecific skin eruption (principal); F17.290 Nicotine dependence, other tobacco product, uncomplicated
CPT/HCPCS: 99282

== ENCOUNTER 2024-02-13 17:25 | Emergency (ER) | payer MEDICAID, SELFPAY ==
[2024-02-13 17:29] VITALS: BP 150/91; PULSE 93; RESP 18; TEMP 36.6; O2SAT 100
--- NOTE | 2024-02-13 17:51 | W.ED.GENAD ---
Discharge Plan Disposition Patient Disposition: Home Condition: Stable Discharge Details Clinical Impression: Streptococcal sore throat Primary Care Provider: Valerie Lafleur ED Provider: Marimar Miranda Home Meds and New Rx's Prescriptions: New penicillin V potassium 500 mg tablet 500 mg PO BID 10 Days Qty: 20 0RF Rx Instructions: Take one tablet twice daily by mouth x 10 days No Action buprenorphine-naloxone [Suboxone] 8-2 mg film 8 film sublingual DAILY Discharge Instructions Instructions: Strep Throat (ED) Additional Instructions: Keep hand wound clean and dry. Positive for strep. Gargle with warm salt water 3 times daily as needed. Please take Tylenol or Ibuprofen with food every 4-6 hours as needed for pain and swelling. Take the antibiotic with yogurt or probiotic as directed. Follow up with primary care provider in 3-5 days. Return to ED sooner if any worsening or concerns. Referrals: Valerie Lafleur [Primary Care Provider] - 5 days Discharge Data Discharge Date/Time-TO BE ENTERED AT DEPARTURE: 02/13/24 18:32 HPI General Mode of arrival: ambulatory. Date/Time Provider Initiated Documentation: 02/13/24 17:36. Limitations to Documentation: no limitations. Information obtained by: patient, RN notes reviewed and old records reviewed. HPI Narrative: 28 year old male presents to the ED with cc of sore throat which began yesterday he does vape. He does have 2+ bilateral tonsils with exudate noted erythema. He also has an abrasion noted to his left thumb and index finger superficial laceration while drilling on a car. Has full range of motion no surrounding induration or erythema noted. Related Data Home Medications Medication Instructions Recorded Confirmed buprenorphine 8 mg-naloxone 2 mg 8 film sublingual DAILY 04/04/22 02/13/24 sublingual film (Suboxone) penicillin V potassium 500 mg 500 mg PO BID Strep throat 10 days 02/13/24 tablet #20 tabs Previous Rx's Medication Instructions Recorded penicillin V potassium 500 mg 500 mg PO BID Strep throat 10 days 02/13/24 tablet #20 tabs Allergies Allergy/AdvReac Type Severity Reaction Status Date / Time No Known Allergies Allergy Unverified 02/13/24 17:33 General Stated Complaint: Sorethroat NERIS: 4 Review of Systems ENT Ears, Nose, Mouth, and Throat: Reports as per HPI and Reports sore throat Integumentary/Breasts Skin/Breast: Reports wounds Exam [facility] Throat: uvula midline and abnormal tonsil bilaterally erythema and exudates Extrem Left upper extremity: hand Details: abrasion Location: of the thumb and of the 2nd digit and puncture wound Hand/finger images: 1. Abrasion bleeding controlled 2. Superficial abrasion noted bleeding controlled Course Vital Signs Vital signs: Vital Signs Temperature 36.6 C 02/13/24 17:29 Pulse 93 H 02/13/24 17:29 Respiratory Rate 18 02/13/24 17:29 Blood Pressure 150/91 H 02/13/24 17:29 Pulse Oximetry 100 02/13/24 17:29 Temperature 36.6 C 02/13/24 17:29 Temperature Source Skin 02/13/24 17:29 Pulse 93 H 02/13/24 17:29 Respiratory Rate 18 02/13/24 17:29 Respiratory Effort Normal, Non-Labored 02/13/24 17:32 Blood Pressure 150/91 H 02/13/24 17:29 Blood Pressure Position Sitting 02/13/24 17:29 Pulse Oximetry 100 02/13/24 17:29 Oxygen Delivery Method Room Air 02/13/24 17:29 Oxygen Flow Rate 0 02/13/24 17:29 Pain Level 0 02/13/24 17:29 Medical Decision Making 28 year old male presents to the ED with cc of sore throat which began yesterday he does vape. He does have 2+ bilateral tonsils with exudate noted erythema. He also has an abrasion noted to his left thumb and index finger superficial laceration while drilling on a car. Has full range of motion no surrounding induration or erythema noted. Positive rapid strep swab will give penicillin first dose given here. Instructed on wound care and strict return instructions verbalized understanding. This text was generated using [employer] system, please disregard any oddities of phrase or misspellings. Quality:SDOH Health Related Social Needs: No Data to Display PFSH All Active Problems (Updated 02/13/24 @ 18:15 by Marimar Miranda NP) Streptococcal sore throat (Acute) Medical History (Updated 02/13/24 @ 18:15 by Marimar Miranda NP) Asthma Clavicle fracture Arm fracture, left Social History Smoking/Tobacco Use Status: Current every day Tobacco Type: e-cigarettes Smoking risk assessment performed?: Yes Alcohol Intake: never Drug use: Current Sobriety Substance use type: marijuana and opiates Details: On suboxone Do you feel safe at home: Yes Do you feel safe in your relationship?: Yes
[2024-02-13 18:28] VITALS: BP 150/91; PULSE 93; RESP 18; TEMP 36.6; O2SAT 100
[2024-02-13] MEDS: Penicillin V POTASSIUM 500 MG TAB, 4 TABS/BTL PO (18:28)
[2024-02-13] MEDS: Penicillin V POTASSIUM 500 MG TAB PO (18:28)
[2024-02-13 18:30] VITALS: BP 150/91; PULSE 82; RESP 18; TEMP 36.6; O2SAT 100
== END 2024-02-13 18:32 | disposition home or self-care (01) ==
PROVIDERS: Emergency Provider Registered Nurse Emergency; PCP Nurse Practitioner
DX: J02.0 Streptococcal pharyngitis (principal); S60.311A Abrasion of right thumb, initial encounter; S60.410A Abrasion of right index finger, initial encounter; X58.XXXA Exposure to other specified factors, initial encounter; Y93.89 Activity, other specified
CPT/HCPCS: 87880; 99283

== ENCOUNTER 2024-02-22 01:29 | Emergency (ER) | payer MEDICAID, SELFPAY ==
[2024-02-22 01:41] VITALS: BP 125/93; PULSE 75; RESP 14; TEMP 37.1; O2SAT 100
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
[2024-02-22] MEDS: Erythromycin Ophth Oint 3.5 GM TUBE OS (02:04)
[2024-02-22] MEDS: Tetracaine 0.5% 4 ML BTL (02:05)
[2024-02-22] MEDS: Fluorescein STRIPS 100/BOX 1 MG OP (02:05)
== END 2024-02-22 02:50 | disposition home or self-care (01) ==
PROVIDERS: Emergency Provider Student in an Organized Health Care Education/Training Program
DX: T15.02XA Foreign body in cornea, left eye, initial encounter (principal)
CPT/HCPCS: 65220; 99283

== ENCOUNTER 2024-03-17 20:31 | Emergency (ER) | payer MEDICAID, SELFPAY ==
[2024-03-17 20:34] VITALS: BP 134/82; PULSE 87; RESP 16; TEMP 36.1; O2SAT 99
[2024-03-17] MEDS: Dexamethasone 4 MG TAB 8 MG PO (20:59)
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
[2024-03-17 21:44] VITALS: BP 134/82; PULSE 87; RESP 16; TEMP 36.1; O2SAT 99
== END 2024-03-17 21:44 | disposition home or self-care (01) ==
PROVIDERS: Emergency Provider Emergency Medicine
DX: R21 Rash and other nonspecific skin eruption (principal); F17.290 Nicotine dependence, other tobacco product, uncomplicated
CPT/HCPCS: 99283; J8540

== ENCOUNTER 2024-05-07 17:52 | Emergency (ER) | payer MEDICAID, SELFPAY ==
[2024-05-07 17:57] VITALS: BP 140/99; PULSE 111; RESP 15; TEMP 37.3; O2SAT 98
== END 2024-05-07 22:03 | disposition left against medical advice (07) ==
LOC: ER 18:05
DX: Z53.21 Procedure and treatment not carried out due to patient leaving prior to being seen by health care provider (principal)

== ENCOUNTER 2024-05-11 21:45 | Outpatient (REF) | payer MEDICAID, SELFPAY ==
[2024-05-13 16:14] LABS: HSV 1 DNA Result Negative (Negative); HSV 2 DNA Result Positive (Negative)
== END 2024-05-11 21:46 | disposition home or self-care (01) ==
LOC: LBN 21:45
PROVIDERS: Visit Provider Nurse Practitioner Family
DX: N48.9 Disorder of penis, unspecified (principal)
CPT/HCPCS: 87529

== ENCOUNTER 2024-10-14 02:47 | Outpatient (CLI) | payer MEDICAID, SELFPAY ==
--- NOTE | 2024-10-14 | DI.RAD_ITS ---
Exam(s) XR SHOULDER RT COMPLETE 2+V EXAM: XR SHOULDER RT COMPLETE 2+V CLINICAL HISTORY: SHOULDER JOINT PAIN, RT,M25.511. TECHNIQUE: 2D digital imaging was performed. COMPARISON: No exams were available for comparison FINDINGS: Five views There is no evidence of fracture or dislocation of the glenohumeral joint and there are no abnormal s oft tissue calcifications in the non diminished subacromial space. There is no joint space narrowing in the glenohumeral joint but on the Grashey view there are very tiny opposing osteophytes on the in ferior articular surface of the humeral head and osseous glenoid. There are no degenerative subartic ular cysts noted. There is a dorsal fusion plate across a healed ipsilateral midshaft fracture of the clavicle. The ri ght AC joint appears unremarkable. No adjacent rib fractures. IMPRESSION: No acute osseous findings in the right shoulder. However, other findings as above. DATA REPOSITORY: RADIATION DOSE DELIVERED:
== END 2024-10-14 03:07 ==
LOC: DI 02:47
PROVIDERS: PCP Nurse Practitioner Family; Visit Provider Nurse Practitioner Family
DX: M25.511 Pain in right shoulder (principal)
CPT/HCPCS: 73030

== ENCOUNTER 2024-10-31 22:08 | Emergency (ER) | payer MEDICAID, SELFPAY ==
[2024-10-31 22:14] VITALS: BP 129/87; PULSE 76; RESP 15; TEMP 36.9; O2SAT 97
--- NOTE | 2024-10-31 22:28 | ED.GENADUL_ITS ---
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 Limitations to Documentation: no limitations . Information obtained by: patient . HPI Narrative: 29-year-old gentleman without significant past medical history presents for evaluation of left eye pain. 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 He reports that his sensation of getting something into his left eye. He felt like it was there every time he blinks. He did not have visual change. He reports some mild sensation in the right eye but does not think that there is anything in that 1. He reports that after arriving here he was blinking and felt like the metal piece came out and his pain is significantly improved. Related Data Home Medications ?Medication ?Instructions ?Recorded ?Confirmed buprenorphine 8 mg-naloxone 2 mg 8 film sublingual DAILY 04/04/22 10/31/24 sublingual film (Suboxone) Allergies Allergy/AdvReac Type Severity Reaction Status Date / Time No Known Allergies Allergy Unverified 10/31/24 22:13 General Stated Complaint: EyeProblem NERIS: 4 Exam Narrative Exam Narrative: Review of Systems: All systems reviewed & are unremarkable except as noted in HPI and below Well-developed, no acute distress NCAT PERRL, normal conjunctiva Acuity 20/20, 20/15 There is no obvious foreign body, there is a small defect in the left cornea at about 3:00 that is visible to the naked eye, There is very minimal fluorescein uptake in this area, there is no fluorescein uptake or foreign body noted in the right eye Course Vital Signs Vital signs: Vital Signs Temperature 36.9 C 10/31/24 22:14 Pulse 76 10/31/24 22:14 Respiratory Rate 15 10/31/24 22:14 Blood Pressure 129/87 10/31/24 22:14 Pulse Oximetry 97 10/31/24 22:14 Temperature 36.9 C 10/31/24 22:14 Temperature Source Temporal Artery Scan 10/31/24 22:14 Pulse 76 10/31/24 22:14 Respiratory Rate 15 10/31/24 22:14 Blood Pressure 129/87 10/31/24 22:14 Blood Pressure Position Sitting 10/31/24 22:14 Pulse Oximetry 97 10/31/24 22:14 Oxygen Delivery Method Room Air 10/31/24 22:14 Oxygen Flow Rate 0 10/31/24 22:14 Pain Level 3 10/31/24 22:14 Medical Decision Making Emergent emergent evaluation of foreign body in eye. There is no visual deficit and the patient seems to have self irrigated the foreign body prior to my evaluation. There is a very minimal defect noted on examination. Will treat with topical erythromycin. Pain had resolved prior to tetracaine administration. AMA I had a long discussion with the patient regarding risks, benefits, and alternatives to my recommended treatment plan, which includes and the patient declined, voicing understanding of the risks but preferring instead to leave against medical advice. Some of the risks we specifically discussed included permanent disability or . I discussed with the patient that they were always welcome back to this department should they change their mind, and that regardless they should follow up with their primary care doctor at the soonest possible opportunity. All questions were answered and the patient left AMA in unchanged condition. Have provided him with erythromycin to take at home and I recommend continued use of this for the next few days. Follow-up as needed. Return precautions advised. Quality:SDOH Health Related Social Needs: No Data to Display PFSH All Active Problems (Updated 10/31/24 @ 22:43 by Rao Zuñiga MD) Abrasion of cornea, left (Acute) Foreign body in eye (Acute) Medical History (Updated 10/31/24 @ 22:43 by Rao Zuñiga MD) Asthma Clavicle fracture Arm fracture, left Social History Smoking/Tobacco Use Status: Current every day Tobacco Type: e-cigarettes Smoking risk assessment performed?: Yes Alcohol Intake: current Alcohol Intake frequency: 3 or more drinks per day Alcohol type: beer and hard liquor Drug use: Current Sobriety Substance use type: marijuana and opiates Details: On suboxone Housing: apartment Do you feel safe at home: Yes Do you feel safe in your relationship?: Yes PAWSS Have you Been Recently Intoxicated or Drunk Within the Last 30 days?: No Have you Ever Experienced Previous Episodes of Alcohol Withdrawal?: No Have you ever Experienced Withdrawal Seizures?: No Have you ever Experienced Delirium Tremens(DT)s?: No Have you ever undergone Alcohol Rehabilitation Treatment (i.e, inpt ot outpatient treatment programs)?: No Have you ever Experienced Blackouts?: No Have you ever Combined Alcohol with other Downers within the last 90 days?: No Have you ever Combined Alcohol with any other Substance of Abuse during the last 90 days?: No Positive Blood Alcohol level on Presentation? [PCS.BAL]: No Evidence of Increased Autonomic Activity (i.e. HR>120, tremor, sweating, agitation, nausea)?: No Result: 0
[2024-10-31] MEDS: Erythromycin Ophth Oint 3.5 GM TUBE OP (22:50)
[2024-10-31] MEDS: Tetracaine 0.5% 4 ML BTL OP (22:53)
[2024-10-31] MEDS: Fluorescein STRIPS 100/BOX 1 MG OP (22:53)
== END 2024-10-31 22:53 | disposition home or self-care (01) ==
PROVIDERS: Emergency Provider Emergency Medicine; PCP Nurse Practitioner Family
DX: S05.02XA Injury of conjunctiva and corneal abrasion without foreign body, left eye, initial encounter (principal); F17.290 Nicotine dependence, other tobacco product, uncomplicated; X58.XXXA Exposure to other specified factors, initial encounter
CPT/HCPCS: 99283